=== PATIENT | male | born 1940 | race Caucasian/White ===

== ENCOUNTER 2019-02-12 13:18 | Emergency (ER) | payer OTHER | END 2019-02-12 15:08 | disposition home or self-care (01) | LOC: EDH 13:18 | DX: S61.217A Laceration without foreign body of left little finger without damage to nail, initial encounter (principal); S61.215A Laceration without foreign body of left ring finger without damage to nail, initial encounter; I10 Essential (primary) hypertension; E11.9 Type 2 diabetes mellitus without complications; I25.10 Atherosclerotic heart disease of native coronary artery without angina pectoris; Z85.05 Personal history of malignant neoplasm of liver; W26.0XXA Contact with knife, initial encounter; Y93.G3 Activity, cooking and baking; Y92.098 Other place in other non-institutional residence as the place of occurrence of the external cause; Y99.8 Other external cause status | CPT/HCPCS: 12002; 73140 ==

== ENCOUNTER 2019-08-20 14:44 | Inpatient (IN) | payer OTHER ==
[~2019-08-20] VITALS: Ht 162.6 cm; Wt 76.3 kg
[2019-08-20 15:12] LABS: BASOPHILS % (AUTO) 0.3 % (0.0-5.0); LYMPHOCYTES % (AUTO) 5.6 % (21.0-51.0); MEAN CORPUSCULAR HEMOGLOBIN 27.7 pg (27.0-33.0); MEAN CORPUSCULAR HGB CONC 26.3 g/dL (32.0-36.0); MEAN CORPUSCULAR VOLUME 105.4 fL (79-99); NEUTROPHILS % (AUTO) 84.1 % (40.0-77.0); NUCLEATED RED BLOOD CELLS 2.1 % (0.0-0.19); PLATELET COUNT (AUTO) 35 K/uL (130-400); RED BLOOD CELL COUNT(AUTO) 1.48 MIL/uL (4.50-6.20); RED CELL DISTRIBUTION WIDTH 17.9 % (11.0-15.5); WHITE BLOOD COUNT (AUTO) 12.6 K/uL (4.8-10.8)
[2019-08-20 15:32] LABS: INR 1.06 (0.85-1.15); PARTIAL THROMBOPLASTIN TIME 23.1 SEC (26.3-35.5); PROTHROMBIN TIME 11.4 SEC (9.6-11.6)
[2019-08-20 15:50] LABS: HEMATOCRIT 15.6 % (42-54)
[2019-08-20 15:51] LABS: B-TYPE NATRIURETIC PEPTIDE 374 pg/mL (0-100)
[2019-08-20] MEDS ORDERED: SODIUM CHLORIDE 0.9% 100 ML IV ONE (16:35)
[2019-08-20 16:42] LABS: HEMATOCRIT 15.8 % (42-54)
[2019-08-20 16:46] LABS: RETICULOCYTE % (AUTO) 18.77 % (0.42-2.23)
[2019-08-20 17:19] LABS: APPEARANCE,URINE Clear (CLEAR); BILIRUBIN,URINE Negative (NEGATIVE); COLOR,URINE Yellow (YELLOW); GLUCOSE, URINE (UA) Negative (NEGATIVE); KETONES,URINE Negative (NEGATIVE); LEUKOCYTE ESTERASE ,URINE Negative (NEGATIVE); NITRATE,URINE Negative (NEGATIVE); OCCULT BLOOD,URINE Negative (NEGATIVE); PROTEIN,URINE Negative (NEGATIVE); UROBILINOGEN,URINE 0.2 mg/dL (0.2-1.0)
[2019-08-20] MEDS ORDERED: MORPHINE SULFATE 2 MG/ML 1ML SYG IV PRN (18:30)
[2019-08-20] MEDS ORDERED: HYDRALAZINE HCL 20 MG/ML VIAL IV PRN (18:30)
[2019-08-20] MEDS ORDERED: ACETAMINOPHEN 325 MG TAB PO PRN ×2 (18:30)
[2019-08-20] MEDS ORDERED: DiphenhydrAMINE HCL 50 MG/ML VIAL IV PRN (18:30)
[2019-08-20 22:05] VITALS: BP 105/65
--- NOTE | 2019-08-20 22:05 | NUR ---
ADMIT PT ADMITTED TO ROOM 312 FROM ER WITH ONGOING BLOOD TRANSFUSION AND INSULIN DRIP. PT CLAIMS OF SOB WITH EXERTION. ADMISSION CARE DONE. ADMISSION DATA BASE COMPLETED. ORIENTED TO ROOM AND UNIT. IN FOR MORE CARE AND MANAGEMENT. Addendum: 08/20/19 at 2251 by HINA WARREN RN RN Amended: Links added.
[2019-08-20] MEDS ORDERED: ASCO500T10 PO (23:03)
[2019-08-20] MEDS ORDERED: CARV12.511 PO (23:03)
[2019-08-20] MEDS ORDERED: INSLAN SQ (23:03)
[2019-08-20] MEDS ORDERED: LISI1TAB28 PO (23:03)
[2019-08-20] MEDS ORDERED: FERR324T4 PO (23:03)
[2019-08-20] MEDS ORDERED: PRAV40TA3 PO (23:03)
[2019-08-20] MEDS ORDERED: HYDR-4153 PO (23:03)
[2019-08-20] MEDS ORDERED: ALLO100T PO (23:03)
[2019-08-20] MEDS ORDERED: AMLO10TA7 PO (23:03)
[2019-08-20] MEDS ORDERED: METF-444 PO (23:03)
[2019-08-20] MEDS ORDERED: APIX5TAB PO (23:03)
[2019-08-20] MEDS: PANTOPRAZOLE SODIUM 80 MG in SODIUM CHLORIDE 0.9% 100 ML IV SCH (23:51)
--- NOTE | 2019-08-20 23:55 | NUR ---
BLOOD BLOOD TRANSFUSION COMPLETED WITHOUT ANY UNTOWARD S/SX. V/S MONITORED, STABLE. KEPT RESTED. ENCOURAGED TO GO TO SLEEP. PLACED NPO FROM NOW. PT VERBALIZES UNDERSTANDING.
[2019-08-21] VITALS (19 sets, daily range): BP systolic 87–158; BP diastolic 55–88
--- NOTE | 2019-08-21 02:10 | NUR ---
HEMOGLOBIN PT'S REPEAT HEMOGLOBIN=6.9. CALLED LAB FOR PRBC. EFFICIENCY MINER BLASTING WAS INFORMED THAT ONE UNIT IS AVAILABLE BUT NEED TO BE CROSSED MATCHED. WILL BE CALLED WHEN READY.
--- NOTE | 2019-08-21 02:30 | NUR ---
BLOOD PT MADE AWARE OF NEED FOR TRANSFUSION OF 3RD UNIT OF PRBC. PT VERBALIZES UNDERSTANDING.CHECKED UNIT OF PRBC WITH ARIC WHITTINGTON. V/S MONITORED, STABLE. STARTED TRANSFUSION. WILL MONITOR CLOSELY.
--- NOTE | 2019-08-21 02:55 | NUR ---
ASSESS PT TOLERATING BLOOD TRANSFUSION WELL. NO UNTOWARD S/SX NOTED. V/S MONITORED, STABLE. WILL MONITOR CLOSELY.
[2019-08-21] MEDS ORDERED: INSU100I3 SQ ×2 (03:15)
[2019-08-21] MEDS: CEFTRIAXONE SODIUM 1 GM IV SCH ×2 (05:45→17:46)
--- NOTE | 2019-08-21 06:00 | NUR ---
COMPLETED BLOOD TRANSFUSION COMPLETED, NO UNTOWARD S/SX NOTED. V/S MONITORED, STABLE. KEPT NPO. AWAITING GI LAB FOR PROCEDURE.
--- NOTE | 2019-08-21 06:30 | NUR ---
NANETTE HAWKINS RN, IN TO TAKE PT TO PROCEDURE. CATTYMAN CIARA BLOOD FIRST BEFORE PT WAS TAKEN DOWN.
[2019-08-21] MEDS ORDERED: PROPOFOL 10 MG/ML 20ML VIAL IV ONE (06:50)
[2019-08-21] MEDS ORDERED: GLYCOPYRROLATE 1 MG/5 ML SYRINGE ONE (06:51)
[2019-08-21 06:57] LABS: BASOPHILS % (AUTO) 0.5 % (0.0-5.0); EOSINOPHILS % (AUTO) 1.5 % (0.0-8.0); HEMATOCRIT 28.7 % (42-54); MEAN CORPUSCULAR HEMOGLOBIN 27.5 pg (27.0-33.0); MEAN CORPUSCULAR HGB CONC 28.9 g/dL (32.0-36.0); MONOCYTES % (AUTO) 6.7 % (3.0-13.0); NEUTROPHILS % (AUTO) 80.5 % (40.0-77.0); NUCLEATED RED BLOOD CELLS 1.3 % (0.0-0.19); PLATELET COUNT (AUTO) 34 K/uL (130-400); RED BLOOD CELL COUNT(AUTO) 3.02 MIL/uL (4.50-6.20); RED CELL DISTRIBUTION WIDTH 18.6 % (11.0-15.5); WHITE BLOOD COUNT (AUTO) 12.1 K/uL (4.8-10.8)
[2019-08-21] MEDS ORDERED: SODIUM CHLORIDE 0.9% 1000ML 1,000 ML IV SCH (07:30)
[2019-08-21 07:59] LABS: BILIRUBIN,TOTAL 0.5 mg/dL (0.2-1.0); CREATININE 1.7 mg/dL (0.5-1.5); POTASSIUM 4.4 mmol/L (3.5-5.1); TOTAL PROTEIN, SERUM 6.4 g/dL (6.0-8.3)
--- NOTE | 2019-08-21 08:00 | NUR ---
RECEIVED TO ROOM 312 S/P EGD WITH BX. AWAKE, ALERT. CLEAR LIQ DIET ORDERED. NEW ORDERS IN. BP 120/73 RR RATE AT 20, HR 93, TEMP. 98 PROTONIX DRIP INFUSING.
[2019-08-21] MEDS: PANTOPRAZOLE SODIUM 80 MG in SODIUM CHLORIDE 0.9% 100 ML IV SCH (08:50)
--- NOTE | 2019-08-21 12:02 | NUR ---
INITIAL SW spoke with patient. He states he lives with stepdalefty, Rashard Acuña, [phone]. Another emergency contact is daughter in [place], . No home services. DME: heather. Patient states he is able to complete ADL's and drives. He recently moved to [place] and has no local PCP yet. Pharmacy is [place] pharmacy. DCP is home. Addendum: 08/21/19 at 1205 by MANJEET SIMPSON SS Amended: Links added.
[2019-08-21] MEDS ORDERED: PEG 3350/NA SULF,BICARB,CL/KCL 4000 ML SOLN PO SCH (15:00)
--- NOTE | 2019-08-21 15:00 | NUR ---
STARTED ON GOLYTELY PREP FOR COLONOSCOPY IN AM.
--- NOTE | 2019-08-21 22:21 | NUR ---
PLATELET COUNT NOTIFIED HOSPITALIST, KATERINA FIGUEROA NP REGARDING DR. HERNANDEZ'S RECOMMENDATION TO "CORRECT PLATELET COUNT TO 50". NEW ORDER RECEIVED TO TRANSFUSE ONE UNIT OF PLATELETS.
[2019-08-22] VITALS (27 sets, daily range): BP systolic 114–164; BP diastolic 60–94
--- NOTE | 2019-08-22 00:35 | NUR ---
PLATELET TRANSFUSION STARTED 34
[2019-08-22 04:22] LABS: BASOPHILS % (AUTO) 0.5 % (0.0-5.0); EOSINOPHILS % (AUTO) 1.5 % (0.0-8.0); HEMATOCRIT 30.1 % (42-54); MEAN CORPUSCULAR HEMOGLOBIN 28.1 pg (27.0-33.0); MEAN CORPUSCULAR HGB CONC 29.2 g/dL (32.0-36.0); MEAN CORPUSCULAR VOLUME 96.2 fL (79-99); MONOCYTES % (AUTO) 5.9 % (3.0-13.0); NEUTROPHILS % (AUTO) 81.9 % (40.0-77.0); NUCLEATED RED BLOOD CELLS 0.7 % (0.0-0.19); PLATELET COUNT (AUTO) 39 K/uL (130-400); RED BLOOD CELL COUNT(AUTO) 3.13 MIL/uL (4.50-6.20); RED CELL DISTRIBUTION WIDTH 18.6 % (11.0-15.5); WHITE BLOOD COUNT (AUTO) 10.5 K/uL (4.8-10.8)
[2019-08-22 04:37] LABS: ALBUMIN 3.2 g/dL (3.5-5.0); CREATININE 1.5 mg/dL (0.5-1.5); POTASSIUM 3.6 mmol/L (3.5-5.1)
[2019-08-22 04:58] LABS: BILIRUBIN,TOTAL 0.7 mg/dL (0.2-1.0)
[2019-08-22] MEDS ORDERED: PROPOFOL 10 MG/ML 20ML VIAL IV ONE (08:30)
[2019-08-22] MEDS: CEFTRIAXONE SODIUM 1 GM IV SCH (19:11)
[2019-08-22] MEDS: FERROUS SULFATE 325 MG TABLET.DR PO SCH (20:05)
[2019-08-22] MEDS: PANTOPRAZOLE SODIUM 40 MG TABLET.DR PO SCH (20:05)
--- NOTE | 2019-08-23 00:12 | NUR ---
TACHYCARDIA INFORMED PENNY FIGUEROA DISCOVERY MANAGER FOR HOSPITALIST THAT PATIENTS HEART RATE DURING MIDNIGHT VITALS 128, BP 141/78. PATIENT STATES HE FEELS FINE. INFORMED DISCOVERY MANAGER THAT PATIENT TAKES COREG AT HOME AND MED HAS NOT BEEN RESUMED. ORDERS RECEIVED TO START COREG 6.25 BID FIRST DOSE NOW. ORDERS ALSO RECEIVED FOR PRN LABETALOL IV
[2019-08-23] MEDS: CARVEDILOL 6.25 MG TABLET PO SCH ×2 (00:16→08:24)
[2019-08-23] MEDS ORDERED: CARVEDILOL 6.25 MG TABLET PO ONE (00:20)
[2019-08-23] MEDS ORDERED: LABETALOL HCL 5 MG/ML 20ML VIAL IV PRN (00:30)
[2019-08-23 04:00] VITALS: BP 145/78
[2019-08-23] MEDS: CEFTRIAXONE SODIUM 1 GM IV SCH (04:24)
[2019-08-23 04:25] LABS: BASOPHILS % (AUTO) 0.5 % (0.0-5.0); EOSINOPHILS % (AUTO) 1.9 % (0.0-8.0); LYMPHOCYTES % (AUTO) 5.6 % (21.0-51.0); MEAN CORPUSCULAR HEMOGLOBIN 27.5 pg (27.0-33.0); MEAN CORPUSCULAR VOLUME 94.8 fL (79-99); MONOCYTES % (AUTO) 8.3 % (3.0-13.0); NEUTROPHILS % (AUTO) 82.8 % (40.0-77.0); NUCLEATED RED BLOOD CELLS 0.5 % (0.0-0.19); PLATELET COUNT (AUTO) 37 K/uL (130-400); RED BLOOD CELL COUNT(AUTO) 3.27 MIL/uL (4.50-6.20); RED CELL DISTRIBUTION WIDTH 17.2 % (11.0-15.5); WHITE BLOOD COUNT (AUTO) 8.8 K/uL (4.8-10.8)
[2019-08-23 04:53] LABS: ALBUMIN 3.3 g/dL (3.5-5.0); BILIRUBIN,TOTAL 0.6 mg/dL (0.2-1.0); CREATININE 1.3 mg/dL (0.5-1.5); TOTAL PROTEIN, SERUM 6.9 g/dL (6.0-8.3)
[2019-08-23 08:15] VITALS: BP 128/81
[2019-08-23] MEDS: FERROUS SULFATE 325 MG TABLET.DR PO SCH (08:24)
[2019-08-23] MEDS: PANTOPRAZOLE SODIUM 40 MG TABLET.DR PO SCH (08:25)
--- NOTE | 2019-08-23 10:20 | NUR ---
DR. ARGUELLO AWARE OF CASE STATES WILL SEE PATIENT AT NOON.
[2019-08-23 11:35] VITALS: BP 148/88
--- NOTE | 2019-08-23 12:30 | NUR ---
DR. ARGUELLO STATES TO F/U 1 WEEK. Addendum: 08/23/19 at 1616 by ZACK GONZALEZ RN RN STATES AND RECOMMENDS PT TO STOP BLOOD THINNERS TO PREVENT GI BLEED.
[2019-08-23] MEDS ORDERED: LISINOPRIL 20 MG TABLET PO SCH (13:00)
[2019-08-23] MEDS ORDERED: HYDROCHLOROTHIAZIDE 25 MG TABLET PO SCH (13:00)
[2019-08-23] MEDS ORDERED: FERR324T4 PO (13:15)
--- NOTE | 2019-08-23 16:12 | NUR ---
PT D/C HOME USING TEACH BACK TECHNIQUE RE; FOLLOW UP WITH YOUR PRIMARY DOCTOR IN 1 WEEK. CALL TO SET UP AN APPOINTMENT. FOLLOW UP WITH DR. ENRIQUEZ/FRACISCO OR MARY; ENVIRONMENTAL DESIGNER IN 1 OR 2 WEEKS. CALL TO SET UP AN APPOINTMENT. FOLLOW UP WITH DR. ARGUELLO IN 1-2 WEEKS. CALL TO SET UP AN APPOINTMENT. IF YOU NOTICE BLOOD IN YOUR STOOLS CALL YOUR PRIMMARY DOCTOR. IF YOU FEEL SHORTNESS OF BREATH OR CHEST PAIN THAT DOES NOT RESOLVE WITH REST CALL 911. STOP BLOOD THINNER DIRECTED BY YOUR AIRFIELD DEFENCE GUARD WHO SAW YOU HERE AT [facility]. IV OUT INTACT, NO BLEEDING, AAOX3, IN NO DISTRESS, STATES DOES NOT WANT A WHEELCHAIR WENT DOWN TO ER, REFUSING TRANSFER TO EXIT. TELE REMOVED BY CHARGE NURSE INCLUDING IV CATHETERS.
--- NOTE | 2019-08-23 18:27 | NUR ---
CALLED NEXT OF KIN MRS LÓPEZ LEFT VOICEMAIL OF APPOINTMENT WITH DR. ENRIQUEZ AND DR. ARGUELLO AND PHONE NUMBERS. AND REASON FOR CONSULTS. THE NEED TO SET UP APPOINTMENTS.
[2019-08-23] MEDS ORDERED: CARVEDILOL 12.5 MG TABLET PO SCH (21:00)
== END 2019-08-23 16:00 | disposition home or self-care (01) | DRG 393 ==
LOC: EDH 14:44 → EDHIP 18:20 → 3BH 21:34
PROVIDERS: ADMIT Internal Medicine; ATTEND Internal Medicine
PROC: 30233N1 Transfusion of Nonautologous Red Blood Cells into Peripheral Vein, Percutaneous Approach (ICD-10-PCS; principal; 2019-08-20)
PROC: 0DB98ZX Excision of Duodenum, Via Natural or Artificial Opening Endoscopic, Diagnostic (ICD-10-PCS; 2019-08-21)
PROC: 0DB68ZX Excision of Stomach, Via Natural or Artificial Opening Endoscopic, Diagnostic (ICD-10-PCS; 2019-08-21)
PROC: 0DBK8ZZ Excision of Ascending Colon, Via Natural or Artificial Opening Endoscopic (ICD-10-PCS; 2019-08-22)
PROC: 0DBH8ZZ Excision of Cecum, Via Natural or Artificial Opening Endoscopic (ICD-10-PCS; 2019-08-22)
PROC: 30233R1 Transfusion of Nonautologous Platelets into Peripheral Vein, Percutaneous Approach (ICD-10-PCS; 2019-08-22)
DX: K63.5 Polyp of colon (principal); K29.71 Gastritis, unspecified, with bleeding; I48.20 Chronic atrial fibrillation, unspecified; D62 Acute posthemorrhagic anemia; I25.10 Atherosclerotic heart disease of native coronary artery without angina pectoris; E11.9 Type 2 diabetes mellitus without complications; I10 Essential (primary) hypertension; Z85.05 Personal history of malignant neoplasm of liver; R09.02 Hypoxemia; D69.6 Thrombocytopenia, unspecified; E78.5 Hyperlipidemia, unspecified; M10.9 Gout, unspecified; Z79.01 Long term (current) use of anticoagulants; Z87.19 Personal history of other diseases of the digestive system; Z87.891 Personal history of nicotine dependence; K44.9 Diaphragmatic hernia without obstruction or gangrene
CPT/HCPCS: 36415; 36430; 43239; 45378; 71045; 80053; 81003; 82270; 82550; 82607; 82728; 82746; 82948; 83540; 83550; 83880; 84145; 84484; 85014; 85018; 85025; 85045; 85610; 85730; 86850; 86900; 86901; 86922; 93005; 99291; A4606; C9113; G0378; J0696; J2704; J3490; J7030; P9016; P9034

== ENCOUNTER 2019-09-04 14:06 | Inpatient (IN) | payer OTHER ==
[~2019-09-04] VITALS: Ht 157.5 cm; Wt 74.8 kg
[~2019-09-04 14:06] MED LIST: ALLO100T PO; AMLO-258 PO; APIX5TAB PO; ASCO500T10 PO; CARV12.511 PO; FERR324T4 PO; HYDR-4153 PO; INSLAN SQ; INSU100I3 SQ; LISI1TAB51 PO; METF-444 PO; PRAV40TA3 PO
[2019-09-04 15:06] LABS: EOSINOPHILS % (AUTO) 3.1 % (0.0-8.0); HEMATOCRIT 21.4 % (42-54); MEAN CORPUSCULAR HEMOGLOBIN 27.2 pg (27.0-33.0); MEAN CORPUSCULAR HGB CONC 28.5 g/dL (32.0-36.0); MEAN CORPUSCULAR VOLUME 95.5 fL (79-99); MONOCYTES % (AUTO) 8.4 % (3.0-13.0); NEUTROPHILS % (AUTO) 75.7 % (40.0-77.0); NUCLEATED RED BLOOD CELLS 0.3 % (0.0-0.19); PLATELET COUNT (AUTO) 40 K/uL (130-400); RED BLOOD CELL COUNT(AUTO) 2.24 MIL/uL (4.50-6.20); RED CELL DISTRIBUTION WIDTH 17.1 % (11.0-15.5); WHITE BLOOD COUNT (AUTO) 7.7 K/uL (4.8-10.8)
[2019-09-04 15:24] LABS: CREATININE 1.5 mg/dL (0.5-1.5); POTASSIUM 4.1 mmol/L (3.5-5.1)
[2019-09-04 15:26] LABS: INR 0.94 (0.85-1.15); PARTIAL THROMBOPLASTIN TIME 23.6 SEC (26.3-35.5); PROTHROMBIN TIME 10.2 SEC (9.6-11.6)
[2019-09-04 15:28] LABS: ALBUMIN 3.2 g/dL (3.5-5.0); BILIRUBIN,TOTAL 0.3 mg/dL (0.2-1.0); TOTAL PROTEIN, SERUM 6.5 g/dL (6.0-8.3)
[2019-09-04] MEDS ORDERED: ONDANSETRON HCL 4 MG/2 ML VIAL IV PRN (20:30)
[2019-09-04] MEDS ORDERED: DIPHENHYDRAMINE HCL 25 MG CAPSULE PO PRN (20:30)
[2019-09-04] MEDS ORDERED: ACETAMINOPHEN 325 MG TAB PO PRN ×2 (20:30)
[2019-09-04] MEDS ORDERED: MORPHINE SULFATE 2 MG/ML 1ML SYG IV PRN (20:30)
[2019-09-04] MEDS: ASCORBIC ACID 500 MG TAB PO SCH (21:00)
[2019-09-04] MEDS ORDERED: FAMOTIDINE/PF 20 MG/2 ML VIAL IV SCH (21:00)
[2019-09-04] MEDS: INSULIN GLARGINE 100 UNITS/ML 10 ML VIAL SQ SCH (21:00)
[2019-09-04 22:01] LABS: HEMATOCRIT 23.6 % (42-54)
[2019-09-04 23:30] VITALS: BP 113/67
--- NOTE | 2019-09-04 23:30 | NUR ---
PT ARRIVED ON FLOOR RECEIVED PT FROM ARIC GODOY. PATIENT AWAKE AND ALERT X3. PT LAYING IN BED, BLOOD TRANSFUSING VIA PUMP SET AT 175ML/HR STARTED IN ED. PROTONIX SET TO 10ML/HR INFUSING VIA PUMP. PT TRANG WELL, NO ADVERSE REACTIONS NOTED. ORIENTED TO CALL LIGHT. BED LOCKED IN LOWEST POSITION, DOOR LEFT OPEN FOR CONTINUOS MONITORING.
[2019-09-05] MEDS: FERROUS SULFATE 325 MG TABLET.DR PO SCH ×3 (00:34→20:16)
[2019-09-05] MEDS: CARVEDILOL 12.5 MG TABLET PO SCH ×3 (00:34→20:16)
--- NOTE | 2019-09-05 01:04 | NUR ---
BLOOD COMPLETED AT THIS TIME. VS STABLE. NO ADVERSE REACTIONS.
--- NOTE | 2019-09-05 01:15 | NUR ---
CONSENT FOR BLOOD AND BLOOD PRODUCTS SIGNED AND IN THE PT'S CHART.
[2019-09-05 02:33] LABS: BASOPHILS % (AUTO) 0.7 % (0.0-5.0); EOSINOPHILS % (AUTO) 3.1 % (0.0-8.0); HEMATOCRIT 25.5 % (42-54); LYMPHOCYTES % (AUTO) 9.9 % (21.0-51.0); MEAN CORPUSCULAR HEMOGLOBIN 28.4 pg (27.0-33.0); MEAN CORPUSCULAR HGB CONC 29.4 g/dL (32.0-36.0); MEAN CORPUSCULAR VOLUME 96.6 fL (79-99); MONOCYTES % (AUTO) 7.3 % (3.0-13.0); NEUTROPHILS % (AUTO) 77.2 % (40.0-77.0); NUCLEATED RED BLOOD CELLS 0.2 % (0.0-0.19); PLATELET COUNT (AUTO) 39 K/uL (130-400); RED BLOOD CELL COUNT(AUTO) 2.64 MIL/uL (4.50-6.20); RED CELL DISTRIBUTION WIDTH 16.3 % (11.0-15.5); WHITE BLOOD COUNT (AUTO) 8.4 K/uL (4.8-10.8)
[2019-09-05 02:45] LABS: ALBUMIN 3.1 g/dL (3.5-5.0); BILIRUBIN,TOTAL 0.4 mg/dL (0.2-1.0); CREATININE 1.6 mg/dL (0.5-1.5); POTASSIUM 3.9 mmol/L (3.5-5.1); TOTAL PROTEIN, SERUM 6.3 g/dL (6.0-8.3)
[2019-09-05] MEDS ORDERED: SODIUM CHLORIDE 0.9% 250 ML IV ONE (03:21)
--- NOTE | 2019-09-05 03:40 | NUR ---
PLATELETS VERIFICATION WITH SECOND RN ARIC COLLINS MADE AT BEDSIDE. PRE-INFUSION VITALS ASSESSED, WPL PLATELETS HUNG, INFUSION SET TO 60ML/HR AT START. REMAIN AT PTS BEDSIDE DURING THIS TIME. NO INITIAL ADVERSE REACTION OBSERVED. PT INFORMED OF REACTION S/S TO MONITOR FOR. CALL LIGHT WITHIN REACH
[2019-09-05 04:00] VITALS: BP 121/78
[2019-09-05] MEDS ORDERED: METOPROLOL TARTRATE 1 MG/ML 5ML VIAL IV SCH (05:45)
[2019-09-05] MEDS ORDERED: METOPROLOL TARTRATE 1 MG/ML 5ML VIAL IV ONE (05:52)
[2019-09-05] MEDS: INSULIN LISPRO 100 UNIT/ML 3ML SQ SCH (07:42)
[2019-09-05 08:00] VITALS: BP 126/69
[2019-09-05 08:42] LABS: HEMATOCRIT 25.9 % (42-54)
[2019-09-05] MEDS ORDERED: PANTOPRAZOLE SODIUM 40 MG TABLET.DR PO SCH (09:00)
[2019-09-05] MEDS: ASCORBIC ACID 500 MG TAB PO SCH ×3 (11:27→20:16)
[2019-09-05] MEDS: ALLOPURINOL 100 MG TABLET PO SCH (11:28)
[2019-09-05] MEDS: AMLODIPINE BESYLATE 5 MG TAB PO SCH (11:28)
--- NOTE | 2019-09-05 11:59 | NUR ---
INITIAL SW spoke with patient's daughter, Cherry Moulton in [place], . Daughter states he lives with stepdaughter, Rashard Acuña, . No home services. DME: cane. As per daughter patient is able to complete ADL's but is not sure if he is still driving. Patient recently moved to [place]. PCP is Dr. Quinn Miramontes at [place]. Pharmacy is [place] pharmacy. DCP is home. FORD contacted Ki Young, Inpatient Contract Bias Binding Cutter at [place]. Charlette informed FORD that patient was Not Service Connected. CM made aware. Addendum: 09/05/19 at 1202 by MANJEET SIMPSON Amended: Links added.
[2019-09-05 12:00] VITALS: BP 136/76
[2019-09-05] MEDS ORDERED: CARVEDILOL 12.5 MG TABLET PO SCH (12:15)
[2019-09-05] MEDS: LISINOPRIL 20 MG TABLET PO SCH (12:20)
[2019-09-05] MEDS: PANTOPRAZOLE SODIUM 80 MG in SODIUM CHLORIDE 0.9% 100 ML IV SCH ×2 (12:27→15:06)
[2019-09-05 14:42] LABS: HEMATOCRIT 25.5 % (42-54)
[2019-09-05 16:00] VITALS: BP 99/56
[2019-09-05] MEDS ORDERED: INSULIN LISPRO 100 UNIT/ML 3ML SQ SCH (17:00)
[2019-09-05 19:10] VITALS: BP 116/91
[2019-09-05 20:32] LABS: HEMATOCRIT 27.1 % (42-54)
[2019-09-05] MEDS: INSULIN GLARGINE 100 UNITS/ML 10 ML VIAL SQ SCH (21:00)
[2019-09-05] MEDS ORDERED: ATORVASTATIN CALCIUM 10 MG TABLET PO SCH (21:00)
[2019-09-05 23:55] VITALS: BP 98/52
[2019-09-06] VITALS (10 sets, daily range): BP systolic 92–135; BP diastolic 52–82
[2019-09-06 02:47] LABS: BASOPHILS % (AUTO) 0.5 % (0.0-5.0); EOSINOPHILS % (AUTO) 2.6 % (0.0-8.0); HEMATOCRIT 25.5 % (42-54); LYMPHOCYTES % (AUTO) 9.4 % (21.0-51.0); MEAN CORPUSCULAR HEMOGLOBIN 28.6 pg (27.0-33.0); MEAN CORPUSCULAR HGB CONC 29.8 g/dL (32.0-36.0); MEAN CORPUSCULAR VOLUME 95.9 fL (79-99); MONOCYTES % (AUTO) 7.5 % (3.0-13.0); NUCLEATED RED BLOOD CELLS 0.2 % (0.0-0.19); PLATELET COUNT (AUTO) 43 K/uL (130-400); RED BLOOD CELL COUNT(AUTO) 2.66 MIL/uL (4.50-6.20); RED CELL DISTRIBUTION WIDTH 16.2 % (11.0-15.5); WHITE BLOOD COUNT (AUTO) 9.6 K/uL (4.8-10.8)
[2019-09-06 02:59] LABS: ALBUMIN 3.1 g/dL (3.5-5.0); BILIRUBIN,TOTAL 0.6 mg/dL (0.2-1.0); CREATININE 1.7 mg/dL (0.5-1.5); POTASSIUM 4.3 mmol/L (3.5-5.1); TOTAL PROTEIN, SERUM 6.5 g/dL (6.0-8.3)
[2019-09-06] MEDS: PANTOPRAZOLE SODIUM 80 MG in SODIUM CHLORIDE 0.9% 100 ML IV SCH (06:42)
[2019-09-06] MEDS ORDERED: GLYCOPYRROLATE 0.2 MG/ML 5 ML VIAL ONE (08:31)
[2019-09-06] MEDS ORDERED: LIDOCAINE HCL 1% 20 ML VIAL ONE (08:31)
[2019-09-06] MEDS ORDERED: PROPOFOL 10 MG/ML 20ML VIAL IV ONE (08:31)
[2019-09-06] MEDS: INSULIN LISPRO 100 UNIT/ML 3ML SQ SCH (09:30)
[2019-09-06 10:05] LABS: HEMATOCRIT 25.7 % (42-54)
[2019-09-06] MEDS: AMLODIPINE BESYLATE 5 MG TAB PO SCH (10:33)
[2019-09-06] MEDS: ALLOPURINOL 100 MG TABLET PO SCH (10:34)
[2019-09-06] MEDS: LISINOPRIL 20 MG TABLET PO SCH (10:34)
[2019-09-06] MEDS: ASCORBIC ACID 500 MG TAB PO SCH ×2 (10:35→14:00)
[2019-09-06] MEDS: CARVEDILOL 12.5 MG TABLET PO SCH (10:37)
[2019-09-06] MEDS: FERROUS SULFATE 325 MG TABLET.DR PO SCH (10:37)
[2019-09-06 15:08] LABS: HEMATOCRIT 26.9 % (42-54)
== END 2019-09-06 17:15 | disposition home or self-care (01) | DRG 378 ==
LOC: EDH 14:06 → EDHIP 14:07 → 3AH 23:30
PROVIDERS: ADMIT Internal Medicine; ATTEND Internal Medicine
PROC: 30233N1 Transfusion of Nonautologous Red Blood Cells into Peripheral Vein, Percutaneous Approach (ICD-10-PCS; 2019-09-04)
PROC: 30233R1 Transfusion of Nonautologous Platelets into Peripheral Vein, Percutaneous Approach (ICD-10-PCS; principal; 2019-09-05)
PROC: 0DJ08ZZ Inspection of Upper Intestinal Tract, Via Natural or Artificial Opening Endoscopic (ICD-10-PCS; 2019-09-06)
PROC: 0DJD8ZZ Inspection of Lower Intestinal Tract, Via Natural or Artificial Opening Endoscopic (ICD-10-PCS; 2019-09-06)
DX: K29.51 Unspecified chronic gastritis with bleeding (principal); I48.19 Other persistent atrial fibrillation; K76.6 Portal hypertension; D64.9 Anemia, unspecified; N18.3 Chronic kidney disease, stage 3 (moderate); E11.22 Type 2 diabetes mellitus with diabetic chronic kidney disease; D69.59 Other secondary thrombocytopenia; E78.5 Hyperlipidemia, unspecified; I08.1 Rheumatic disorders of both mitral and tricuspid valves; I12.9 Hypertensive chronic kidney disease with stage 1 through stage 4 chronic kidney disease, or unspecified chronic kidney disease; K31.89 Other diseases of stomach and duodenum; I25.10 Atherosclerotic heart disease of native coronary artery without angina pectoris; I27.20 Pulmonary hypertension, unspecified; Z79.01 Long term (current) use of anticoagulants; K44.9 Diaphragmatic hernia without obstruction or gangrene; Z80.9 Family history of malignant neoplasm, unspecified; Z82.49 Family history of ischemic heart disease and other diseases of the circulatory system; Z87.891 Personal history of nicotine dependence; Z85.05 Personal history of malignant neoplasm of liver
CPT/HCPCS: 36415; 36430; 44360; 71045; 80053; 82270; 82550; 82948; 84484; 85014; 85018; 85025; 85610; 85730; 86850; 86900; 86901; 86922; 93005; 93306; 93356; A4606; C9113; G0378; J2704; J3490; J7030; J7050; P9016; P9034

== ENCOUNTER 2019-09-23 16:47 | Inpatient (IN) | payer OTHER ==
[~2019-09-23] VITALS: Ht 160 cm; Wt 69.9 kg
[~2019-09-23 16:47] MED LIST changes: -APIX5TAB PO
[2019-09-23 17:41] LABS: BASOPHILS % (AUTO) 0.5 % (0.0-5.0); EOSINOPHILS % (AUTO) 2.6 % (0.0-8.0); LYMPHOCYTES % (AUTO) 8.1 % (21.0-51.0); MEAN CORPUSCULAR HEMOGLOBIN 29.3 pg (27.0-33.0); MEAN CORPUSCULAR HGB CONC 27.4 g/dL (32.0-36.0); MEAN CORPUSCULAR VOLUME 106.7 fL (79-99); NEUTROPHILS % (AUTO) 79.6 % (40.0-77.0); NUCLEATED RED BLOOD CELLS 2.3 % (0.0-0.19); PLATELET COUNT (AUTO) 81 K/uL (130-400); RED BLOOD CELL COUNT(AUTO) 1.64 MIL/uL (4.50-6.20); RED CELL DISTRIBUTION WIDTH 22.6 % (11.0-15.5); WHITE BLOOD COUNT (AUTO) 11.8 K/uL (4.8-10.8)
[2019-09-23 17:58] LABS: HEMATOCRIT 17.5 % (42-54)
[2019-09-23 17:59] LABS: INR 0.98 (0.85-1.15); PROTHROMBIN TIME 10.6 SEC (9.6-11.6)
[2019-09-23 18:00] LABS: CREATININE 1.9 mg/dL (0.5-1.5)
[2019-09-23 18:04] LABS: RETICULOCYTE % (AUTO) 13.42 % (0.42-2.23)
[2019-09-23 18:05] LABS: ALBUMIN 2.8 g/dL (3.5-5.0); BILIRUBIN,TOTAL 0.2 mg/dL (0.2-1.0); TOTAL PROTEIN, SERUM 6.3 g/dL (6.0-8.3)
[2019-09-23 21:00] VITALS: BP 137/65
--- NOTE | 2019-09-23 21:00 | NUR ---
PATIENT ARRIVED. A/OX3, SOB WITH EXERTION AND AT REST. ON 2L, NC. 97% 02 SATS. AUDIBLE WHEEZES WITH CRACKLES TO POSTERIOR 2+ LUNGS. 2+ PITTING EDEMA TO BLE. HR A-FIB 120-130S. SKIP HOIST OPERATOR PENNY FIGUEROA NOTIFIED. FIRST UNIT OF BLOOD CURRENTLY TRANSFUSING. TRANSFUSION STARTED IN ED. URINE COLLECTED AND SENT TO LAB. HOME MEDS WILL BE BROUGHT IN TOMORROW BY AMALIA AMARO.
[2019-09-23 21:05] LABS: APPEARANCE,URINE Clear (CLEAR); BILIRUBIN,URINE Negative (NEGATIVE); COLOR,URINE Yellow (YELLOW); GLUCOSE, URINE (UA) Negative (NEGATIVE); KETONES,URINE Negative (NEGATIVE); LEUKOCYTE ESTERASE ,URINE Negative (NEGATIVE); NITRATE,URINE Negative (NEGATIVE); OCCULT BLOOD,URINE Negative (NEGATIVE); PROTEIN,URINE Negative (NEGATIVE); UROBILINOGEN,URINE 0.2 mg/dL (0.2-1.0)
[2019-09-23] MEDS: CEFTRIAXONE SODIUM 1 GM IVP SCH (22:48)
[2019-09-23] MEDS: LACTATED RINGERS 1000ML 1,000 ML IV SCH (22:48)
[2019-09-23] MEDS: PANTOPRAZOLE SODIUM 40 MG TABLET.DR PO SCH (22:49)
--- NOTE | 2019-09-23 23:00 | NUR ---
PENNY FIGUEROA NP PAGED FOR DYSRHYTHMIA EPISODE. AWAITING CALL BACK.
[2019-09-24] VITALS: BP 133/72
[2019-09-24] MEDS ORDERED: CARVEDILOL 12.5 MG TABLET PO ONE ×2 (00:15→00:47)
[2019-09-24 00:44] LABS: HEMATOCRIT 22.3 % (42-54)
[2019-09-24 01:14] LABS: CREATININE 1.6 mg/dL (0.5-1.5); MAGNESIUM 2.7 mg/dL (1.80-2.40); POTASSIUM 4.6 mmol/L (3.5-5.1)
--- NOTE | 2019-09-24 01:33 | NUR ---
Post Transfusion HG 6.4. Will notify FURNITURE FINISHER
[2019-09-24] MEDS ORDERED: FUROSEMIDE 10 MG/ML 2ML VIAL IV STA (02:20)
[2019-09-24] MEDS ORDERED: FUROSEMIDE 10 MG/ML 2ML VIAL ONE (03:33)
[2019-09-24 04:00] VITALS: BP 129/64
[2019-09-24] MEDS: INSULIN LISPRO 100 UNIT/ML 3ML SQ SCH ×4 (06:47→21:00)
[2019-09-24 07:57] VITALS: BP 136/73
[2019-09-24] MEDS: LACTATED RINGERS 1000ML 1,000 ML IV SCH (08:20)
[2019-09-24] MEDS ORDERED: CARVEDILOL 12.5 MG TABLET PO SCH ×3 (09:00→14:45)
[2019-09-24] MEDS: CEFTRIAXONE SODIUM 1 GM IVP SCH ×2 (10:12→21:54)
[2019-09-24] MEDS: PANTOPRAZOLE SODIUM 40 MG TABLET.DR PO SCH ×2 (10:12→21:54)
[2019-09-24 10:59] VITALS: BP 121/63
[2019-09-24 12:02] LABS: BASOPHILS % (AUTO) 0.8 % (0.0-5.0); EOSINOPHILS % (AUTO) 2.3 % (0.0-8.0); HEMATOCRIT 25.7 % (42-54); LYMPHOCYTES % (AUTO) 6.7 % (21.0-51.0); MEAN CORPUSCULAR HEMOGLOBIN 29.1 pg (27.0-33.0); MEAN CORPUSCULAR HGB CONC 29.6 g/dL (32.0-36.0); MEAN CORPUSCULAR VOLUME 98.5 fL (79-99); MONOCYTES % (AUTO) 6.1 % (3.0-13.0); NEUTROPHILS % (AUTO) 81.6 % (40.0-77.0); NUCLEATED RED BLOOD CELLS 0.6 % (0.0-0.19); PLATELET COUNT (AUTO) 88 K/uL (130-400); RED BLOOD CELL COUNT(AUTO) 2.61 MIL/uL (4.50-6.20); RED CELL DISTRIBUTION WIDTH 21.9 % (11.0-15.5); WHITE BLOOD COUNT (AUTO) 11.9 K/uL (4.8-10.8)
[2019-09-24 12:16] LABS: CREATININE 1.6 mg/dL (0.5-1.5); POTASSIUM 4.2 mmol/L (3.5-5.1)
[2019-09-24 12:24] LABS: ALBUMIN 2.9 g/dL (3.5-5.0); BILIRUBIN,TOTAL 0.7 mg/dL (0.2-1.0); TOTAL PROTEIN, SERUM 6.5 g/dL (6.0-8.3)
[2019-09-24] MEDS ORDERED: EPOETIN ALFA 10,000 UNIT/ML VIAL SQ SCH (14:30)
[2019-09-24] MEDS ORDERED: COMPOUND IV MISC 1 EACH IVSOLN MISC PRN (14:45)
[2019-09-24] MEDS: IRON SUCROSE COMPLEX 300 MG in SODIUM CHLORIDE 0.9% 50 ML IV SCH (15:41)
[2019-09-24 16:35] VITALS: BP 131/101
--- NOTE | 2019-09-24 16:59 | NUR ---
CM NOTE/IA MEET WITH PATIENT IN ROOM. PER PATIENT, LIVES WITH STEPDAUGHTER AND SON IN [place], IS INDEPENDENT WITH ADLS, HAS USE OF CANE, NO COMMUNITY RESOURCES IN USE, AND FEELS SAFE TO RETURN HOME ONCE DISCHARGE. Addendum: 09/24/19 at 1659 by CORI YAP RN CM Amended: Links added.
[2019-09-24 18:36] LABS: HEMATOCRIT 28.3 % (42-54)
[2019-09-24 19:00] VITALS: BP 134/78
[2019-09-24] MEDS: FERROUS SULFATE 325 MG TABLET.DR PO SCH (21:54)
[2019-09-24] MEDS: CARVEDILOL 25 MG TABLET PO SCH (21:55)
[2019-09-25] VITALS (23 sets, daily range): BP systolic 86–144; BP diastolic 44–86
[2019-09-25 03:51] LABS: MEAN CORPUSCULAR HGB CONC 29.6 g/dL (32.0-36.0); NUCLEATED RED BLOOD CELLS 0.9 % (0.0-0.19); PLATELET COUNT (AUTO) 81 K/uL (130-400); RED BLOOD CELL COUNT(AUTO) 2.55 MIL/uL (4.50-6.20); RED CELL DISTRIBUTION WIDTH 21.4 % (11.0-15.5); WHITE BLOOD COUNT (AUTO) 10.3 K/uL (4.8-10.8)
[2019-09-25 04:01] LABS: EOSINOPHILS % (MANUAL) 6 % (1-6); LYMPHOCYTES % (MANUAL) 14 % (22-44); MAN.DIFF COMMENT-IMPRESSION MANUAL DIFFERENTIAL; MONOCYTES % (MANUAL) 6 % (2-9); PLATELET MORPHOLOGY COMMENT DECREASED; SEGMENTED NEUTROPHILS % 74 % (40-70)
[2019-09-25 04:04] LABS: CREATININE 1.6 mg/dL (0.5-1.5); MAGNESIUM 2.6 mg/dL (1.80-2.40); PHOSPHORUS 3.9 mg/dL (2.5-4.9); POTASSIUM 4.4 mmol/L (3.5-5.1)
[2019-09-25] MEDS: INSULIN LISPRO 100 UNIT/ML 3ML SQ SCH ×4 (06:30→20:12)
[2019-09-25] MEDS ORDERED: PROPOFOL 10 MG/ML 20ML VIAL IV ONE (07:25)
[2019-09-25] MEDS ORDERED: LIDOCAINE HCL-MPF 2% 5ML VIAL ONE (07:25)
[2019-09-25] MEDS ORDERED: SODIUM CHLORIDE 0.9% 10 ML VIAL ONE (07:56)
[2019-09-25] MEDS ORDERED: PHENYLEPHRINE HCL 10 MG/ML 1ML VIAL IV ONE (07:57)
[2019-09-25] MEDS ORDERED: EPINEPHRINE 1 MG/ML AMPULE ONE (08:03)
[2019-09-25] MEDS: FERROUS SULFATE 325 MG TABLET.DR PO SCH ×2 (09:29→20:08)
[2019-09-25] MEDS: PANTOPRAZOLE SODIUM 40 MG TABLET.DR PO SCH ×2 (09:29→20:07)
[2019-09-25] MEDS: CARVEDILOL 25 MG TABLET PO SCH (09:30)
[2019-09-25] MEDS: IRON SUCROSE COMPLEX 300 MG in SODIUM CHLORIDE 0.9% 50 ML IV SCH (09:31)
[2019-09-25] MEDS: CEFTRIAXONE SODIUM 1 GM IVP SCH ×2 (09:45→20:07)
[2019-09-25] MEDS: ASCORBIC ACID 500 MG TAB PO SCH (09:46)
[2019-09-25] MEDS: METOPROLOL TARTRATE 50 MG TAB PO SCH (20:08)
[2019-09-26 04:00] VITALS: BP 122/68
[2019-09-26] MEDS: SUCRALFATE 1 GM TABLET PO SCH ×4 (05:12→17:03)
[2019-09-26] MEDS: INSULIN LISPRO 100 UNIT/ML 3ML SQ SCH ×3 (06:10→15:54)
[2019-09-26 07:46] VITALS: BP 123/76
[2019-09-26] MEDS: CEFTRIAXONE SODIUM 1 GM IVP SCH (08:46)
[2019-09-26] MEDS: FERROUS SULFATE 325 MG TABLET.DR PO SCH (08:47)
[2019-09-26] MEDS: ASCORBIC ACID 500 MG TAB PO SCH (08:47)
[2019-09-26] MEDS: METOPROLOL TARTRATE 50 MG TAB PO SCH (08:47)
[2019-09-26] MEDS: PANTOPRAZOLE SODIUM 40 MG TABLET.DR PO SCH (08:47)
[2019-09-26] MEDS: IRON SUCROSE COMPLEX 300 MG in SODIUM CHLORIDE 0.9% 50 ML IV SCH (08:51)
[2019-09-26] MEDS ORDERED: IRON SUCROSE COMPLEX 300 MG in SODIUM CHLORIDE 0.9% 250 ML IV SCH (09:16)
[2019-09-26 11:45] VITALS: BP 117/58
[2019-09-26] MEDS ORDERED: PANT40TA PO (12:11)
[2019-09-26] MEDS ORDERED: METO50 PO (12:11)
[2019-09-26] MEDS ORDERED: SUCR1TAB PO (12:11)
[2019-09-26 12:25] LABS: BASOPHILS % (AUTO) 0.5 % (0.0-5.0); EOSINOPHILS % (AUTO) 2.5 % (0.0-8.0); HEMATOCRIT 27.9 % (42-54); LYMPHOCYTES % (AUTO) 5.5 % (21.0-51.0); MEAN CORPUSCULAR HEMOGLOBIN 29.2 pg (27.0-33.0); MEAN CORPUSCULAR HGB CONC 28.3 g/dL (32.0-36.0); MONOCYTES % (AUTO) 7.8 % (3.0-13.0); NEUTROPHILS % (AUTO) 82.4 % (40.0-77.0); NUCLEATED RED BLOOD CELLS 0.5 % (0.0-0.19); PLATELET COUNT (AUTO) 75 K/uL (130-400); RED BLOOD CELL COUNT(AUTO) 2.71 MIL/uL (4.50-6.20); RED CELL DISTRIBUTION WIDTH 21.2 % (11.0-15.5)
[2019-09-26 12:33] LABS: CREATININE 1.6 mg/dL (0.5-1.5); POTASSIUM 4.5 mmol/L (3.5-5.1)
[2019-09-26] MEDS ORDERED: EPOETIN ALFA 10,000 UNIT/ML VIAL SQ SCH (15:00)
[2019-09-26 15:52] VITALS: BP 109/57
--- NOTE | 2019-09-26 17:20 | NUR ---
PATIENT BEING DISCHARGED HOME AT THIS TIME; PIV X2 AND TELEPACK REMOVED; NEW PRESCRIPTIONS SENT TO PATIENT PHARMACY; ALL DC INSTRUCTIONS GIVEN; PATIENT STATES HE FULLY UNDERSTANDS AND HAS NO FURTHER QUESTIONS AT THIS TIME. DC INSTRUCTIONS ALSO GIVEN TO DAUGHTERPREM VIA TELEPHONE.
== END 2019-09-26 17:32 | disposition home or self-care (01) | DRG 378 ==
LOC: EDH 16:47 → EDHIP 17:36 → 4BH 20:59
PROVIDERS: ADMIT Internal Medicine; ATTEND Internal Medicine
PROC: 30233N1 Transfusion of Nonautologous Red Blood Cells into Peripheral Vein, Percutaneous Approach (ICD-10-PCS; principal; 2019-09-23)
PROC: 3E0G8GC Introduction of Other Therapeutic Substance into Upper GI, Via Natural or Artificial Opening Endoscopic (ICD-10-PCS; 2019-09-25)
DX: K31.811 Angiodysplasia of stomach and duodenum with bleeding (principal); I48.20 Chronic atrial fibrillation, unspecified; D62 Acute posthemorrhagic anemia; C22.0 Liver cell carcinoma; I48.91 Unspecified atrial fibrillation; I27.20 Pulmonary hypertension, unspecified; N18.9 Chronic kidney disease, unspecified; E11.22 Type 2 diabetes mellitus with diabetic chronic kidney disease; E78.5 Hyperlipidemia, unspecified; I07.1 Rheumatic tricuspid insufficiency; I25.10 Atherosclerotic heart disease of native coronary artery without angina pectoris; Z85.05 Personal history of malignant neoplasm of liver; Z87.891 Personal history of nicotine dependence; I12.9 Hypertensive chronic kidney disease with stage 1 through stage 4 chronic kidney disease, or unspecified chronic kidney disease; K44.9 Diaphragmatic hernia without obstruction or gangrene
CPT/HCPCS: 36415; 36430; 43236; 43255; 45388; 71045; 80048; 80053; 81003; 82270; 82550; 82948; 83010; 83615; 83735; 83880; 84100; 84484; 85014; 85018; 85025; 85045; 85610; 85730; 86850; 86900; 86901; 86922; 93005; 99291; G0378; J0171; J0696; J0885; J1756; J1940; J2370; J2704; J3490; J7030; J7050; J7120; P9016

== ENCOUNTER 2019-10-08 12:43 | Inpatient (IN) | payer OTHER ==
[~2019-10-08] VITALS: Ht 160 cm; Wt 67.5 kg
[~2019-10-08 12:43] MED LIST changes: -CARV12.511 PO; +METO50 PO; +PANT40TA PO; +SUCR1TAB PO
[2019-10-08 13:20] LABS: BASOPHILS % (AUTO) 0.3 % (0.0-5.0); EOSINOPHILS % (AUTO) 2.1 % (0.0-8.0); HEMATOCRIT 32.5 % (42-54); LYMPHOCYTES % (AUTO) 5.2 % (21.0-51.0); MEAN CORPUSCULAR HEMOGLOBIN 28.2 pg (27.0-33.0); MEAN CORPUSCULAR HGB CONC 28.3 g/dL (32.0-36.0); MEAN CORPUSCULAR VOLUME 99.7 fL (79-99); MONOCYTES % (AUTO) 4.9 % (3.0-13.0); PLATELET COUNT (AUTO) 78 K/uL (130-400); RED BLOOD CELL COUNT(AUTO) 3.26 MIL/uL (4.50-6.20); RED CELL DISTRIBUTION WIDTH 16.8 % (11.0-15.5); WHITE BLOOD COUNT (AUTO) 6.6 K/uL (4.8-10.8)
[2019-10-08 13:34] LABS: CREATININE 2.1 mg/dL (0.5-1.5); POTASSIUM 5.1 mmol/L (3.5-5.1)
[2019-10-08 13:38] LABS: ALBUMIN 3.1 g/dL (3.5-5.0); BILIRUBIN,TOTAL 0.3 mg/dL (0.2-1.0); TOTAL PROTEIN, SERUM 6.8 g/dL (6.0-8.3)
[2019-10-08 13:41] LABS: INR 1.06 (0.85-1.15); PROTHROMBIN TIME 11.4 SEC (9.6-11.6)
[2019-10-08 13:54] LABS: B-TYPE NATRIURETIC PEPTIDE 1200 pg/mL (0-100)
[2019-10-08] MEDS ORDERED: BUMETANIDE 0.25 MG/ML 4 ML VIAL ONE (14:15)
[2019-10-08] MEDS ORDERED: ACETAMINOPHEN 325 MG TAB PO PRN ×2 (15:45)
[2019-10-08] MEDS ORDERED: LACTULOSE 20 GM/30 ML UDCUP PO PRN (15:45)
[2019-10-08] MEDS ORDERED: HYDRALAZINE HCL 20 MG/ML VIAL IV PRN (15:45)
[2019-10-08] MEDS ORDERED: BUMETANIDE 0.25 MG/ML 10 ML VIAL IV SCH (15:45)
[2019-10-08] MEDS ORDERED: ONDANSETRON HCL 4 MG/2 ML VIAL IV PRN (15:45)
[2019-10-08] MEDS ORDERED: BUMETANIDE 0.25 MG/ML IV SCH (16:30)
[2019-10-08 17:57] LABS: HEMOGLOBIN A1C 4.6 % (4.0-6.0)
[2019-10-08 18:11] LABS: MAGNESIUM 2.5 mg/dL (1.80-2.40); PHOSPHORUS 4.9 mg/dL (2.5-4.9); THYROID STIMULATING HORMONE 1.25 uIU/mL (0.36-3.74)
[2019-10-08] MEDS: METOPROLOL TARTRATE 25 MG TAB PO SCH (21:00)
[2019-10-08] MEDS ORDERED: FAMOTIDINE 20MG TAB 20 MG TAB ONE (22:27)
[2019-10-08] MEDS ORDERED: METOPROLOL TARTRATE 25 MG TAB ONE (22:27)
--- NOTE | 2019-10-09 08:49 | NUR ---
DCP: HOME SW met with pt who states he lives with step daughter Rashard Acuña [phone]. Pt reports he is very hard or hearing, independent of all ADLS, uses a cane every now and then, has no in home care services. Seen at [place] [facility] and [facility]. Plan is home with family at [place]. Addendum: 10/09/19 at 0851 by ZITA HILL Amended: Links added.
[2019-10-09] MEDS: ENOXAPARIN SODIUM 40 MG/0.4 ML SYRINGE SQ SCH (09:00)
[2019-10-09] MEDS: FAMOTIDINE/PF 20 MG/2 ML VIAL IV SCH (09:00)
[2019-10-09] MEDS: METOPROLOL TARTRATE 25 MG TAB PO SCH ×2 (09:00→21:00)
[2019-10-09] MEDS: LISINOPRIL 10 MG TABLET PO SCH (09:00)
[2019-10-09] MEDS: AMLODIPINE BESYLATE 5 MG TAB PO SCH (09:00)
[2019-10-09] MEDS ORDERED: LISINOPRIL 5 MG TABLET ONE (11:00)
[2019-10-09] MEDS ORDERED: ENOXAPARIN SODIUM 40 MG/0.4 ML SYRINGE SQ ONE (11:01)
[2019-10-09] MEDS ORDERED: AMLODIPINE BESYLATE 5 MG TAB ONE (11:01)
[2019-10-09] MEDS ORDERED: METOPROLOL TARTRATE 25 MG TAB ONE ×2 (11:01→21:17)
[2019-10-09] MEDS ORDERED: METOPROLOL TARTRATE 50 MG TAB ONE ×2 (11:01→21:16)
[2019-10-09 20:00] VITALS: BP 134/79
[2019-10-09] MEDS ORDERED: FAMOTIDINE/PF 20 MG/2 ML VIAL IV ONE (21:17)
[2019-10-09 22:56] LABS: BASOPHILS % (AUTO) 0.3 % (0.0-5.0); EOSINOPHILS % (AUTO) 0.4 % (0.0-8.0); LYMPHOCYTES % (AUTO) 5.3 % (21.0-51.0); MEAN CORPUSCULAR HEMOGLOBIN 28.4 pg (27.0-33.0); MEAN CORPUSCULAR VOLUME 94.6 fL (79-99); MONOCYTES % (AUTO) 5.5 % (3.0-13.0); NEUTROPHILS % (AUTO) 88.1 % (40.0-77.0); PLATELET COUNT (AUTO) 94 K/uL (130-400); RED BLOOD CELL COUNT(AUTO) 3.91 MIL/uL (4.50-6.20); RED CELL DISTRIBUTION WIDTH 16.7 % (11.0-15.5); WHITE BLOOD COUNT (AUTO) 13.9 K/uL (4.8-10.8)
[2019-10-09 23:07] LABS: CREATININE 2.6 mg/dL (0.5-1.5); MAGNESIUM 1.6 mg/dL (1.80-2.40); PHOSPHORUS 4.1 mg/dL (2.5-4.9); POTASSIUM 3.8 mmol/L (3.5-5.1)
[2019-10-09 23:52] LABS: B-TYPE NATRIURETIC PEPTIDE 1340 pg/mL (0-100)
[2019-10-10] VITALS: BP 128/79
--- NOTE | 2019-10-10 00:36 | NUR ---
DONAL BRUNSON NOTIFIED THAT CARDIOLOGY CONSULT PLACED 10/08/19 HAS NOT BEEN DONE YET PER ER NURSE GIVING REPORT STATED TO PASS IT ON AND CONSULT LATER TODAY IN AM.
--- NOTE | 2019-10-10 00:36 | NUR ---
CLERICAL AND OFFICE SUPPORT WORKERS AWARE OF LABS
[2019-10-10] MEDS ORDERED: MAGNESIUM 2GM PREMIX 50ML 50 ML IV PRN (00:45)
[2019-10-10] MEDS ORDERED: MAGNESIUM 2GM PREMIX 50ML 50 ML IV ONE (00:46)
[2019-10-10 04:00] VITALS: BP 128/65
[2019-10-10] MEDS ORDERED: ALLO100T PO (05:11)
[2019-10-10] MEDS ORDERED: METF500S7 PO (05:11)
[2019-10-10] MEDS ORDERED: FURO40SO PO (05:11)
[2019-10-10] MEDS ORDERED: LISI-613 PO (05:11)
[2019-10-10] MEDS ORDERED: HYDR-4153 PO (05:11)
[2019-10-10] MEDS ORDERED: ASCO500C6 PO (05:11)
[2019-10-10] MEDS: ENOXAPARIN SODIUM 40 MG/0.4 ML SYRINGE SQ SCH (09:00)
--- NOTE | 2019-10-10 10:45 | NUR ---
BUMEX DRIP STOPPED, DC'D BY DR BRANHAM. STABLE, DENIES ANY DISTRESS AT THIS TIME.
[2019-10-10 11:41] LABS: APPEARANCE,URINE Cloudy (CLEAR); BILIRUBIN,URINE Negative (NEGATIVE); COLOR,URINE Yellow (YELLOW); GLUCOSE, URINE (UA) Negative (NEGATIVE); KETONES,URINE Negative (NEGATIVE); LEUKOCYTE ESTERASE ,URINE Large (NEGATIVE); NITRATE,URINE Negative (NEGATIVE); OCCULT BLOOD,URINE Moderate (NEGATIVE); PROTEIN,URINE Trace mg/dL (NEGATIVE); UROBILINOGEN,URINE 0.2 mg/dL (0.2-1.0)
[2019-10-10 11:50] LABS: BASOPHILS % (AUTO) 0.5 % (0.0-5.0); EOSINOPHILS % (AUTO) 0.6 % (0.0-8.0); HEMATOCRIT 39.1 % (42-54); LYMPHOCYTES % (AUTO) 5.6 % (21.0-51.0); MEAN CORPUSCULAR HEMOGLOBIN 27.9 pg (27.0-33.0); MEAN CORPUSCULAR HGB CONC 30.2 g/dL (32.0-36.0); MEAN CORPUSCULAR VOLUME 92.4 fL (79-99); MONOCYTES % (AUTO) 7.5 % (3.0-13.0); NEUTROPHILS % (AUTO) 85.3 % (40.0-77.0); PLATELET COUNT (AUTO) 87 K/uL (130-400); RED BLOOD CELL COUNT(AUTO) 4.23 MIL/uL (4.50-6.20); RED CELL DISTRIBUTION WIDTH 16.7 % (11.0-15.5); WHITE BLOOD COUNT (AUTO) 12.8 K/uL (4.8-10.8)
[2019-10-10 12:09] LABS: CARBON DIOXIDE 34 mmol/L (21-32); CHLORIDE 100 mmol/L (101-111); CREATININE 2.1 mg/dL (0.5-1.5); GLOMERULAR FILTR. RATE CALC 33 mL/min (>60); GLUCOSE,RANDOM 181 mg/dL (70-105); POTASSIUM 3.2 mmol/L (3.5-5.1); SODIUM SERUM 142 mmol/L (136-145); UREA NITROGEN, BLOOD 58 mg/dL (7-18)
[2019-10-10 12:11] LABS: BACTERIA,URINE Moderate /HPF (None Seen); MUCUS,URINE Moderate LPF (None Seen); SQUAMOUS EPITHELIAL CELL,UR 0-2 /HPF (0-2); WBC,URINE 51-100 /HPF (0-1)
[2019-10-10 12:13] LABS: PHOSPHORUS 4.2 mg/dL (2.5-4.9)
[2019-10-10 12:47] LABS: % IRON SATURATION 8.4 % (30-44)
[2019-10-10 12:48] LABS: B-TYPE NATRIURETIC PEPTIDE 1430 pg/mL (0-100)
[2019-10-10 14:54] VITALS: BP 125/67
[2019-10-10] MEDS ORDERED: LISINOPRIL 5 MG TABLET ONE (15:00)
[2019-10-10] MEDS ORDERED: AMLODIPINE BESYLATE 5 MG TAB ONE (15:01)
[2019-10-10] MEDS ORDERED: ENOXAPARIN SODIUM 40 MG/0.4 ML SYRINGE SQ ONE (15:01)
[2019-10-10] MEDS ORDERED: METOPROLOL TARTRATE 25 MG TAB ONE (15:01)
[2019-10-10] MEDS ORDERED: FAMOTIDINE/PF 20 MG/2 ML VIAL IV ONE (15:02)
[2019-10-10] MEDS: FAMOTIDINE/PF 20 MG/2 ML VIAL IV SCH (15:09)
[2019-10-10] MEDS: LISINOPRIL 10 MG TABLET PO SCH (15:09)
[2019-10-10] MEDS: AMLODIPINE BESYLATE 5 MG TAB PO SCH (15:09)
[2019-10-10] MEDS: METOPROLOL TARTRATE 25 MG TAB PO SCH ×2 (15:09→20:47)
--- NOTE | 2019-10-10 17:21 | NUR ---
REPORT CALLED TO ARIC LITTLEJOHN FOR CONTINUATION OF CARE. TRANSFERRING TO [facility]
[2019-10-10 18:24] VITALS: BP 128/65
[2019-10-10 20:00] VITALS: BP 128/59
[2019-10-10 23:56] VITALS: BP 141/87
[2019-10-11 03:45] LABS: BASOPHILS % (AUTO) 0.6 % (0.0-5.0); EOSINOPHILS % (AUTO) 2.1 % (0.0-8.0); HEMATOCRIT 36.4 % (42-54); LYMPHOCYTES % (AUTO) 8.1 % (21.0-51.0); MEAN CORPUSCULAR HEMOGLOBIN 28.1 pg (27.0-33.0); MEAN CORPUSCULAR HGB CONC 29.9 g/dL (32.0-36.0); MEAN CORPUSCULAR VOLUME 93.8 fL (79-99); MONOCYTES % (AUTO) 9.3 % (3.0-13.0); NEUTROPHILS % (AUTO) 79.5 % (40.0-77.0); PLATELET COUNT (AUTO) 72 K/uL (130-400); RED BLOOD CELL COUNT(AUTO) 3.88 MIL/uL (4.50-6.20); RED CELL DISTRIBUTION WIDTH 16.3 % (11.0-15.5); WHITE BLOOD COUNT (AUTO) 9.9 K/uL (4.8-10.8)
[2019-10-11 04:00] VITALS: BP 141/73
[2019-10-11 04:15] LABS: CREATININE 1.9 mg/dL (0.5-1.5); MAGNESIUM 1.7 mg/dL (1.80-2.40); PHOSPHORUS 3.9 mg/dL (2.5-4.9); POTASSIUM 3.1 mmol/L (3.5-5.1); THYROID STIMULATING HORMONE 2.18 uIU/mL (0.36-3.74)
--- NOTE | 2019-10-11 06:00 | NUR ---
Informed FRAME EXPANDER Rakan regarding potassium level of 3.1 and bun level 54 and creatinine level of 1.9 with a gfr of of 37. She ordered a one time order of potassium 40 meq.
[2019-10-11] MEDS ORDERED: POTASSIUM CHLORIDE 20 MEQ ERTAB PO SCH (06:15)
[2019-10-11] MEDS ORDERED: POTASSIUM CHLORIDE 20 MEQ ERTAB PO ONE (06:27)
[2019-10-11 08:42] VITALS: BP 122/50
[2019-10-11] MEDS: ENOXAPARIN SODIUM 40 MG/0.4 ML SYRINGE SQ SCH (08:53)
[2019-10-11] MEDS: METOPROLOL TARTRATE 25 MG TAB PO SCH ×2 (08:54→21:22)
[2019-10-11] MEDS: LISINOPRIL 10 MG TABLET PO SCH (08:54)
[2019-10-11] MEDS: FAMOTIDINE/PF 20 MG/2 ML VIAL IV SCH (08:54)
[2019-10-11] MEDS: AMLODIPINE BESYLATE 5 MG TAB PO SCH (08:54)
[2019-10-11] MEDS: Vitamin B Complex/Vit C/Folic Acid PO SCH (08:54)
[2019-10-11] MEDS ORDERED: BUMETANIDE 1 MG TAB PO SCH (09:00)
[2019-10-11 12:13] VITALS: BP 126/65
[2019-10-11] MEDS ORDERED: POTASSIUM CHLORIDE 20 MEQ ERTAB PO PRN (13:00)
[2019-10-11] MEDS ORDERED: POTASSIUM CHLORIDE 10% ELIXIR 20 MEQ/15 ML UDCUP PO PRN (13:00)
[2019-10-11] MEDS ORDERED: LIDOCAINE HCL-MPF 1% 2ML VIAL IV PRN (13:00)
[2019-10-11] MEDS ORDERED: POTASSIUM CHLORIDE 10MEQ/100ML 100 ML IV PRN (13:00)
[2019-10-11 16:55] VITALS: BP 132/61
[2019-10-11 19:05] VITALS: BP 122/80
[2019-10-11] MEDS ORDERED: PHARMACY COMMUNICATION MISC SCH (20:30)
[2019-10-11 23:17] VITALS: BP 132/54
[2019-10-12 03:40] VITALS: BP 145/78
[2019-10-12 06:16] LABS: BASOPHILS % (AUTO) 0.7 % (0.0-5.0); EOSINOPHILS % (AUTO) 4.1 % (0.0-8.0); HEMATOCRIT 38.6 % (42-54); LYMPHOCYTES % (AUTO) 9.7 % (21.0-51.0); MEAN CORPUSCULAR HGB CONC 29.8 g/dL (32.0-36.0); MEAN CORPUSCULAR VOLUME 93.9 fL (79-99); MONOCYTES % (AUTO) 7.3 % (3.0-13.0); NEUTROPHILS % (AUTO) 77.9 % (40.0-77.0); PLATELET COUNT (AUTO) 73 K/uL (130-400); RED BLOOD CELL COUNT(AUTO) 4.11 MIL/uL (4.50-6.20); RED CELL DISTRIBUTION WIDTH 15.8 % (11.0-15.5)
[2019-10-12 06:28] LABS: CREATININE 1.5 mg/dL (0.5-1.5); MAGNESIUM 2.4 mg/dL (1.80-2.40); POTASSIUM 3.5 mmol/L (3.5-5.1)
[2019-10-12 08:00] VITALS: BP 146/78
[2019-10-12] MEDS ORDERED: BUMETANIDE 1 MG TAB PO SCH (08:00)
[2019-10-12] MEDS ORDERED: AMLO5TAB4 PO (08:20)
[2019-10-12] MEDS ORDERED: BUME1TAB6 PO (08:20)
[2019-10-12] MEDS ORDERED: LISI10TA7 PO (08:20)
[2019-10-12] MEDS ORDERED: METO25 PO (08:20)
[2019-10-12] MEDS: FAMOTIDINE/PF 20 MG/2 ML VIAL IV SCH (08:34)
[2019-10-12] MEDS: LISINOPRIL 10 MG TABLET PO SCH (08:34)
[2019-10-12] MEDS: METOPROLOL TARTRATE 25 MG TAB PO SCH (08:34)
[2019-10-12] MEDS: ENOXAPARIN SODIUM 40 MG/0.4 ML SYRINGE SQ SCH (08:34)
[2019-10-12] MEDS: Vitamin B Complex/Vit C/Folic Acid PO SCH (08:35)
[2019-10-12] MEDS: AMLODIPINE BESYLATE 5 MG TAB PO SCH (08:35)
[2019-10-12 11:12] VITALS: BP 138/65
--- NOTE | 2019-10-12 12:07 | NUR ---
Patient discharged at this time in stable condition. DC instructions given. Patient verbalized understanding. Prescription with patient. Patient has agreed to follow up with Zechariah in 7 days. He is aware he needs to call to make an appointment. Phone number to Dr Apple's office provided and in dc paperwork.
== END 2019-10-12 12:42 | disposition home or self-care (01) | DRG 291 ==
LOC: EDH 12:43 → EDHIP 15:52 → 4AH 10-10 18:22
PROVIDERS: ADMIT Internal Medicine; ATTEND Internal Medicine
DX: I13.0 Hypertensive heart and chronic kidney disease with heart failure and stage 1 through stage 4 chronic kidney disease, or unspecified chronic kidney disease (principal); I50.23 Acute on chronic systolic (congestive) heart failure; N17.9 Acute kidney failure, unspecified; I48.19 Other persistent atrial fibrillation; C22.0 Liver cell carcinoma; I42.9 Cardiomyopathy, unspecified; N18.3 Chronic kidney disease, stage 3 (moderate); E11.51 Type 2 diabetes mellitus with diabetic peripheral angiopathy without gangrene; E78.5 Hyperlipidemia, unspecified; D64.9 Anemia, unspecified; D69.6 Thrombocytopenia, unspecified; D72.829 Elevated white blood cell count, unspecified; E11.22 Type 2 diabetes mellitus with diabetic chronic kidney disease; E83.42 Hypomagnesemia; I08.1 Rheumatic disorders of both mitral and tricuspid valves; R16.0 Hepatomegaly, not elsewhere classified; I25.10 Atherosclerotic heart disease of native coronary artery without angina pectoris; I27.20 Pulmonary hypertension, unspecified; Z79.899 Other long term (current) drug therapy; Z85.05 Personal history of malignant neoplasm of liver
CPT/HCPCS: 36415; 71045; 74176; 76700; 80048; 80053; 81001; 82105; 82378; 82550; 82948; 83036; 83540; 83550; 83735; 83880; 84100; 84145; 84443; 84484; 84550; 85025; 85610; 85730; 86316; 87040; 87088; 87804; 93005; 93970; G0378; J1650; J3475; J3490

== ENCOUNTER → 2020-10-06 | Outpatient (CLI) | payer OTHER ==
[~2020-10-06] MED LIST changes: -AMLO-258 PO; +AMLO5TAB4 PO; +ASCO500C6 PO; -ASCO500T10 PO; +BUME1TAB6 PO; -FERR324T4 PO; +FURO40SO PO; +LISI10TA24 PO; -LISI1TAB51 PO; +LISI20TA24 PO; -METF-444 PO; +METF500S7 PO; +METO25 PO
== END | disposition home or self-care (01) ==
LOC: RAH 09:15
PROVIDERS: ATTEND Internal Medicine Gastroenterology
DX: K74.60 Unspecified cirrhosis of liver (principal); I70.0 Atherosclerosis of aorta; R16.0 Hepatomegaly, not elsewhere classified
CPT/HCPCS: 76700; 93975

== ENCOUNTER 2020-11-11 08:27 | Day surgery (SDC) | payer OTHER ==
[2020-11-11] VITALS (10 sets, daily range): BP systolic 109–161; BP diastolic 54–102
[2020-11-11] MEDS ORDERED: NACL 0.9% 1000ML 1,000 ML IV ONE (08:59)
[2020-11-11 09:05] LABS: INR 0.99 (0.85-1.15); PROTHROMBIN TIME 10.8 SEC (9.6-11.6)
[2020-11-11 09:06] LABS: PARTIAL THROMBOPLASTIN TIME 24.9 SEC (26.3-35.5)
[2020-11-11] MEDS ORDERED: MIDAZOLAM HCL 1 MG/ML 2ML VIAL ONE (10:41)
[2020-11-11] MEDS ORDERED: FENTANYL CITRATE PF 50 MCG/1 ML 2ML VIAL ONE (10:41)
== END 2020-11-11 16:20 | disposition home or self-care (01) ==
LOC: DAH 08:27 → EDSTATUS 09:00 → DAH 16:20
PROVIDERS: ATTEND Internal Medicine Hematology & Oncology
DX: R16.0 Hepatomegaly, not elsewhere classified (principal); Z79.01 Long term (current) use of anticoagulants; Z79.899 Other long term (current) drug therapy
CPT/HCPCS: 36415; 47000; 76942; 82948; 85610; 85730; A4215; A4216; A4221; A4222; A4223 ×3; A4606; A4663; C2615; J2250; J3010; J7030 ×2; 96365; 99153

== ENCOUNTER 2021-06-26 17:51 | Inpatient (IN) | payer OTHER ==
[~2021-06-26] VITALS: Ht 154.9 cm; Wt 50.0 kg
[2021-06-26 18:29] LABS: BASOPHILS % (AUTO) 0.5 % (0.0-5.0); EOSINOPHILS % (AUTO) 1.1 % (0.0-8.0); HEMATOCRIT 49.2 % (42-54); LYMPHOCYTES % (AUTO) 8.3 % (21.0-51.0); MEAN CORPUSCULAR HGB CONC 32.5 g/dL (32.0-36.0); MEAN CORPUSCULAR VOLUME 92.3 fL (79-99); MONOCYTES % (AUTO) 5.2 % (3.0-13.0); NEUTROPHILS % (AUTO) 84.3 % (40.0-77.0); PLATELET COUNT (AUTO) 159 K/uL (130-400); RED BLOOD CELL COUNT(AUTO) 5.33 MIL/uL (4.50-6.20); RED CELL DISTRIBUTION WIDTH 14.1 % (11.0-15.5); WHITE BLOOD COUNT (AUTO) 9.5 K/uL (4.8-10.8)
[2021-06-26] MEDS ORDERED: DILTIAZEM 125MG+100 ML NS 125 ML IV PRN (18:30)
[2021-06-26 18:53] LABS: APPEARANCE,URINE Clear (CLEAR); BILIRUBIN,URINE Negative (NEGATIVE); COLOR,URINE Yellow (YELLOW); GLUCOSE, URINE (UA) >=1000 mg/dL (NEGATIVE); KETONES,URINE Trace mg/dL (NEGATIVE); LEUKOCYTE ESTERASE ,URINE Negative (NEGATIVE); NITRATE,URINE Negative (NEGATIVE); OCCULT BLOOD,URINE Moderate (NEGATIVE); PH,URINE 5.5 (5.0-8.0); PROTEIN,URINE 300 mg/dL (NEGATIVE)
[2021-06-26 19:08] LABS: ALBUMIN 3.1 g/dL (3.5-5.0); CREATININE 2.2 mg/dL (0.5-1.5); MAGNESIUM 2.1 mg/dL (1.80-2.40); POTASSIUM 3.6 mmol/L (3.5-5.1); TOTAL PROTEIN, SERUM 7.8 g/dL (6.0-8.3)
[2021-06-26 19:10] LABS: B-TYPE NATRIURETIC PEPTIDE 719 pg/mL (0-100)
[2021-06-26] MEDS ORDERED: DILTIAZEM 50MG VIAL IV ONE (19:17)
[2021-06-26] MEDS ORDERED: INSULIN HUMULIN R 100 UNIT/ML 3ML ONE (19:17)
[2021-06-26] MEDS ORDERED: 0.9%NACL 1000ML 1,000 ML IV ONE (19:18)
[2021-06-26] MEDS ORDERED: INSULIN HUMULIN R 100 UNIT/ML 3ML IV ONE (19:30)
[2021-06-26] MEDS ORDERED: 0.9%NACL 1000ML 1,000 ML IV SCH (19:30)
[2021-06-26] MEDS ORDERED: DILTIAZEM 50MG VIAL IV SCH (19:30)
[2021-06-26 19:32] LABS: INR 1.08 (0.85-1.15); PROTHROMBIN TIME 11.7 SEC (9.6-11.6)
[2021-06-26 19:34] LABS: PARTIAL THROMBOPLASTIN TIME 24.7 SEC (26.3-35.5)
[2021-06-26 19:41] LABS: BACTERIA,URINE Rare /HPF (None Seen); RBC,URINE 0-1 /HPF (0-1); SQUAMOUS EPITHELIAL CELL,UR None Seen /HPF (0-2); WBC,URINE 0-1 /HPF (0-1)
[2021-06-26 20:57] LABS: AMPHET/METH SCREEN,URINE NEGATIVE (NEGATIVE); BARBITURATE SCREEN, URINE NEGATIVE (NEGATIVE); BENZODIAZEPINES SCREEN,URINE NEGATIVE (NEGATIVE); CANNABINOID SCREEN,URINE NEGATIVE (NEGATIVE); COCAINE SCREEN,URINE NEGATIVE (NEGATIVE); OPIATE SCREEN,URINE NEGATIVE (NEGATIVE); PHENCYCLIDINE SCREEN,URINE NEGATIVE (NEGATIVE)
[2021-06-26] MEDS: 0.9%NACL 1000ML 1,000 ML IV SCH (21:52)
[2021-06-27 08:11] LABS: BASOPHILS % (AUTO) 0.7 % (0.0-5.0); EOSINOPHILS % (AUTO) 2.2 % (0.0-8.0); HEMATOCRIT 43.1 % (42-54); LYMPHOCYTES % (AUTO) 12.7 % (21.0-51.0); MEAN CORPUSCULAR HEMOGLOBIN 30.6 pg (27.0-33.0); MEAN CORPUSCULAR HGB CONC 33.2 g/dL (32.0-36.0); MEAN CORPUSCULAR VOLUME 92.1 fL (79-99); MONOCYTES % (AUTO) 6.4 % (3.0-13.0); NEUTROPHILS % (AUTO) 77.5 % (40.0-77.0); PLATELET COUNT (AUTO) 138 K/uL (130-400); RED BLOOD CELL COUNT(AUTO) 4.68 MIL/uL (4.50-6.20); RED CELL DISTRIBUTION WIDTH 13.9 % (11.0-15.5)
[2021-06-27 08:19] LABS: HEMOGLOBIN A1C 13.4 % (4.0-6.0)
[2021-06-27] MEDS: INSULIN HUMULIN R 100 UNIT/ML 3ML SQ SCH ×4 (08:28→21:33)
[2021-06-27] MEDS ORDERED: FAMOTIDINE 20MG TAB ONE (08:32)
[2021-06-27 08:34] LABS: CREATININE 1.6 mg/dL (0.5-1.5); MAGNESIUM 1.8 mg/dL (1.80-2.40); THYROID STIMULATING HORMONE 1.18 uIU/mL (0.36-3.74)
[2021-06-27 08:35] LABS: POTASSIUM 2.7 mmol/L (3.5-5.1)
[2021-06-27] MEDS ORDERED: MAGNESIUM 2GM PREMIX 50ML 50 ML IV PRN (09:30)
[2021-06-27] MEDS ORDERED: POTASSIUM CHLORIDE 10% ELIXIR 20 MEQ/15 ML UDCUP PO PRN (09:30)
[2021-06-27] MEDS ORDERED: PHARMACY COMMUNICATION MISC SCH (09:30)
[2021-06-27] MEDS ORDERED: 0.9%NACL 50ML 50 ML IV ONE (09:46)
[2021-06-27] MEDS: ZOSYN 3.375GM+NS 50ML 50 ML IV SCH ×2 (09:47→21:34)
[2021-06-27] MEDS: POTASSIUM CHLORIDE 20MEQ/100ML 100 ML IV PRN ×2 (11:40→17:41)
[2021-06-27] MEDS: METOPROLOL TARTRATE 25 MG TAB PO SCH ×2 (13:22→21:33)
[2021-06-27] MEDS: LISINOPRIL 20 MG TABLET PO SCH (13:22)
[2021-06-27] MEDS: BUMETANIDE 1 MG TAB PO SCH (13:22)
[2021-06-27] MEDS ORDERED: LIDOCAINE HCL-MPF 1% 2ML VIAL ONE ×2 (16:45→17:33)
[2021-06-27] MEDS: 0.9%NACL 1000ML 1,000 ML IV SCH ×2 (19:33→22:57)
[2021-06-27] MEDS: INSULIN GLARGINE 100 UNITS/ML 10 ML VIAL SQ SCH (21:34)
[2021-06-28 07:20] LABS: BASOPHILS % (AUTO) 0.8 % (0.0-5.0); EOSINOPHILS % (AUTO) 2.5 % (0.0-8.0); HEMATOCRIT 45.1 % (42-54); LYMPHOCYTES % (AUTO) 14.4 % (21.0-51.0); MEAN CORPUSCULAR HGB CONC 32.2 g/dL (32.0-36.0); MEAN CORPUSCULAR VOLUME 93.2 fL (79-99); MONOCYTES % (AUTO) 6.4 % (3.0-13.0); NEUTROPHILS % (AUTO) 75.1 % (40.0-77.0); PLATELET COUNT (AUTO) 152 K/uL (130-400); RED BLOOD CELL COUNT(AUTO) 4.84 MIL/uL (4.50-6.20); RED CELL DISTRIBUTION WIDTH 13.9 % (11.0-15.5); WHITE BLOOD COUNT (AUTO) 8.4 K/uL (4.8-10.8)
[2021-06-28] MEDS: INSULIN HUMULIN R 100 UNIT/ML 3ML SQ SCH ×4 (07:30→22:07)
[2021-06-28 07:36] LABS: BILIRUBIN,TOTAL 0.5 mg/dL (0.2-1.0); CREATININE 1.5 mg/dL (0.5-1.5); TOTAL PROTEIN, SERUM 5.8 g/dL (6.0-8.3)
[2021-06-28 07:39] LABS: HEMOGLOBIN A1C 13.4 % (4.0-6.0); POTASSIUM 2.8 mmol/L (3.5-5.1)
[2021-06-28] MEDS ORDERED: LIDOCAINE HCL-MPF 1% 2ML VIAL ONE (08:31)
[2021-06-28] MEDS: LISINOPRIL 20 MG TABLET PO SCH (08:59)
[2021-06-28] MEDS: ZOSYN 3.375GM+NS 50ML 50 ML IV SCH ×2 (08:59→22:05)
[2021-06-28] MEDS: METOPROLOL TARTRATE 25 MG TAB PO SCH ×2 (08:59→22:05)
[2021-06-28] MEDS ORDERED: FAMOTIDINE 20MG TAB PO SCH (09:00)
[2021-06-28] MEDS: POTASSIUM CHLORIDE 20MEQ/100ML 100 ML IV PRN (09:01)
[2021-06-28] MEDS: BUMETANIDE 1 MG TAB PO SCH (09:05)
[2021-06-28] MEDS: KCL 20 MEQ ERTAB PO SCH (12:00)
[2021-06-28] MEDS ORDERED: PANTOPRAZOLE 40 MG TAB DR PO SCH (13:00)
[2021-06-28] MEDS: PANTOPRAZOLE 40 MG TAB DR PO SCH (13:00)
[2021-06-28 21:30] VITALS: BP 125/59
[2021-06-28] MEDS: INSULIN GLARGINE 100 UNITS/ML 10 ML VIAL SQ SCH (22:06)
[2021-06-29] VITALS: BP 148/70
[2021-06-29 04:00] VITALS: BP 160/77
[2021-06-29] MEDS: INSULIN HUMULIN R 100 UNIT/ML 3ML SQ SCH ×5 (05:27→21:47)
[2021-06-29 08:00] VITALS: BP_SYST 122; BP_SYST 161; BP_DIAS 71; BP_DIAS 76
[2021-06-29] MEDS: ZOSYN 3.375GM+NS 50ML 50 ML IV SCH ×2 (09:18→21:47)
[2021-06-29] MEDS: LISINOPRIL 20 MG TABLET PO SCH (09:18)
[2021-06-29] MEDS: BUMETANIDE 1 MG TAB PO SCH (09:19)
[2021-06-29] MEDS: CLOPIDOGREL 75MG TAB PO SCH ×2 (09:19→09:20)
[2021-06-29] MEDS: METOPROLOL TARTRATE 25 MG TAB PO SCH ×2 (09:22→21:23)
[2021-06-29] MEDS: PANTOPRAZOLE 40 MG TAB DR PO SCH (09:22)
[2021-06-29] MEDS: KCL 20 MEQ ERTAB PO SCH ×2 (09:24→17:20)
[2021-06-29 12:00] VITALS: BP 112/60
[2021-06-29] MEDS: KCL 20 MEQ ERTAB PO PRN (12:29)
[2021-06-29 16:00] VITALS: BP 128/73
[2021-06-29 21:18] VITALS: BP 143/94
[2021-06-29] MEDS: INSULIN GLARGINE 100 UNITS/ML 10 ML VIAL SQ SCH (21:46)
[2021-06-30] VITALS: BP 150/82
[2021-06-30] MEDS: POTASSIUM CHLORIDE 20MEQ/100ML 100 ML IV PRN (03:05)
[2021-06-30 04:00] VITALS: BP 128/65
[2021-06-30] MEDS: KCL 20 MEQ ERTAB PO PRN (04:11)
[2021-06-30] MEDS: INSULIN HUMULIN R 100 UNIT/ML 3ML SQ SCH ×4 (07:30→11:30)
[2021-06-30 08:00] VITALS: BP 132/96
[2021-06-30] MEDS: METOPROLOL TARTRATE 25 MG TAB PO SCH (11:28)
[2021-06-30] MEDS: ZOSYN 3.375GM+NS 50ML 50 ML IV SCH (11:29)
[2021-06-30] MEDS: PANTOPRAZOLE 40 MG TAB DR PO SCH (11:29)
[2021-06-30] MEDS: LISINOPRIL 20 MG TABLET PO SCH (11:29)
[2021-06-30] MEDS: CLOPIDOGREL 75MG TAB PO SCH (11:30)
[2021-06-30] MEDS: BUMETANIDE 1 MG TAB PO SCH (11:30)
[2021-06-30 11:31] VITALS: BP 129/75
== END 2021-06-30 15:37 | DRG 64 ==
LOC: EDH 17:51 → EDHIP 20:19 → 4CH 06-28 20:30
PROVIDERS: ADMIT Internal Medicine; ATTEND Internal Medicine
DX: I63.9 Cerebral infarction, unspecified (principal); G93.41 Metabolic encephalopathy; N17.9 Acute kidney failure, unspecified; I48.19 Other persistent atrial fibrillation; G96.08 Other cranial cerebrospinal fluid leak; E46 Unspecified protein-calorie malnutrition; I13.0 Hypertensive heart and chronic kidney disease with heart failure and stage 1 through stage 4 chronic kidney disease, or unspecified chronic kidney disease; R29.702 NIHSS score 2; N18.30 Chronic kidney disease, stage 3 unspecified; E11.22 Type 2 diabetes mellitus with diabetic chronic kidney disease; D18.1 Lymphangioma, any site; E11.649 Type 2 diabetes mellitus with hypoglycemia without coma; E78.5 Hyperlipidemia, unspecified; E86.0 Dehydration; E86.1 Hypovolemia; E87.6 Hypokalemia; E88.09 Other disorders of plasma-protein metabolism, not elsewhere classified; F02.80 Dementia in other diseases classified elsewhere, unspecified severity, without behavioral disturbance, psychotic disturbance, mood disturbance, and anxiety; F10.10 Alcohol abuse, uncomplicated; G30.9 Alzheimer's disease, unspecified; G31.9 Degenerative disease of nervous system, unspecified; I08.0 Rheumatic disorders of both mitral and aortic valves; I25.10 Atherosclerotic heart disease of native coronary artery without angina pectoris; I50.9 Heart failure, unspecified; Z20.822 Contact with and (suspected) exposure to COVID-19; R13.10 Dysphagia, unspecified; E87.8 Other disorders of electrolyte and fluid balance, not elsewhere classified; G51.39 Clonic hemifacial spasm, unspecified; E11.65 Type 2 diabetes mellitus with hyperglycemia; R32 Unspecified urinary incontinence; R47.02 Dysphasia; R62.7 Adult failure to thrive; Z68.20 Body mass index [BMI] 20.0-20.9, adult; Z79.02 Long term (current) use of antithrombotics/antiplatelets; Z79.4 Long term (current) use of insulin; Z79.899 Other long term (current) drug therapy; Z87.891 Personal history of nicotine dependence; Z85.05 Personal history of malignant neoplasm of liver; Z91.14 Patient's other noncompliance with medication regimen; Z80.9 Family history of malignant neoplasm, unspecified; Z83.3 Family history of diabetes mellitus; Z82.49 Family history of ischemic heart disease and other diseases of the circulatory system
CPT/HCPCS: 36415; 70450; 70551; 71045; 74230; 80048; 80053; 80061; 80305; 81001; 82140; 82550; 82948; 83036; 83605; 83735; 83880; 84100; 84132; 84145; 84443; 84484; 85025; 85610; 85730; 86140; 87040; 87077; 87088; 87186; 87635; 92522; 92526; 92610; 92611; 93005; 93306; 93356; 93880; 97039; 99291; C9803; G0378; J1815; J2543; J3480; J3490; J7030

== ENCOUNTER 2021-09-06 17:28 | Inpatient (IN) | payer OTHER ==
[~2021-09-06] VITALS: Ht 162.6 cm; Wt 55.5 kg
[~2021-09-06 17:28] MED LIST changes: +AMLO-257 PO; -AMLO5TAB4 PO; -ASCO500C6 PO; -FURO40SO PO; -INSLAN SQ; -INSU100I3 SQ; -LISI10TA24 PO; +METF-444 PO; -METF500S7 PO; -METO25 PO; -METO50 PO; +METO75TA PO; -PANT40TA PO; -PRAV40TA3 PO; +PRAV80TA21 PO; -SUCR1TAB PO; +SUCR1TAB2 PO
[2021-09-06 18:18] LABS: HEMATOCRIT 43.7 % (42-54); MEAN CORPUSCULAR HEMOGLOBIN 30.4 pg (27.0-33.0); MEAN CORPUSCULAR HGB CONC 33.4 g/dL (32.0-36.0); MEAN CORPUSCULAR VOLUME 90.9 fL (79-99); PLATELET COUNT (AUTO) 193 K/uL (130-400); RED BLOOD CELL COUNT(AUTO) 4.81 MIL/uL (4.50-6.20); RED CELL DISTRIBUTION WIDTH 14.2 % (11.0-15.5); WHITE BLOOD COUNT (AUTO) 13.2 K/uL (4.8-10.8)
[2021-09-06 18:35] LABS: EOSINOPHILS % (MANUAL) 2 % (1-6); LYMPHOCYTES % (MANUAL) 2 % (22-44); MAN.DIFF COMMENT-IMPRESSION MANUAL DIFFERENTIAL; MONOCYTES % (MANUAL) 3 % (2-9); REACTIVE LYMPHOCYTES 1 % (0-0); SEGMENTED NEUTROPHILS % 92 % (40-70)
[2021-09-06 18:36] LABS: PLATELET MORPHOLOGY COMMENT LARGE PLTS PRESENT
[2021-09-06 18:47] LABS: ALBUMIN 2.8 g/dL (3.5-5.0); BILIRUBIN,TOTAL 0.3 mg/dL (0.2-1.0); CREATININE 2.3 mg/dL (0.5-1.5); POTASSIUM 4.4 mmol/L (3.5-5.1); TOTAL PROTEIN, SERUM 6.9 g/dL (6.0-8.3)
[2021-09-06] MEDS ORDERED: 0.9%NACL 1000ML 2,000 ML IV ONE ×2 (19:23→19:30)
[2021-09-06] MEDS ORDERED: ONDANSETRON 4MG INJ ONE (19:23)
[2021-09-06] MEDS ORDERED: 0.9%NACL 100ML 100 ML ONE (19:24)
[2021-09-06] MEDS ORDERED: INSULIN HUMULIN R 100 UNIT/ML 3ML ONE (19:26)
[2021-09-06] MEDS ORDERED: INSULIN REGULAR, HUMAN 3ML 100 UNIT in 0.9%NACL 100ML 99 ML IV SCH ×2 (19:30)
[2021-09-06 20:44] LABS: APPEARANCE,URINE Clear (CLEAR); BILIRUBIN,URINE Negative (NEGATIVE); COLOR,URINE Yellow (YELLOW); GLUCOSE, URINE (UA) >=1000 mg/dL (NEGATIVE); KETONES,URINE Negative (NEGATIVE); LEUKOCYTE ESTERASE ,URINE Negative (NEGATIVE); NITRATE,URINE Negative (NEGATIVE); OCCULT BLOOD,URINE Negative (NEGATIVE); PH,URINE 5.5 (5.0-8.0); PROTEIN,URINE POS 2+ mg/dL (NEGATIVE); UROBILINOGEN,URINE 0.2 mg/dL (0.2-1.0)
[2021-09-06 20:53] LABS: RBC,URINE 0-1 /HPF (0-1); WBC,URINE 0-1 /HPF (0-1)
[2021-09-06 20:54] LABS: BACTERIA,URINE Rare /HPF (None Seen); SQUAMOUS EPITHELIAL CELL,UR Rare /HPF (0-2)
[2021-09-07] MEDS ORDERED: 0.9%NACL 1000ML 1,000 ML IV ONE (01:22)
[2021-09-07] MEDS ORDERED: GLUCAGON 1MG KIT 1 MG ML IM PRN (08:30)
[2021-09-07] MEDS ORDERED: DEXTROSE 50%-WATER 50 ML DISP.SYRIN IV PRN (08:30)
[2021-09-07 09:54] VITALS: BP 155/78
[2021-09-07] MEDS ORDERED: INSULIN HUMULIN R 100 UNIT/ML 3ML SQ SCH (11:30)
== END 2021-09-07 13:16 | disposition home health service (06) | DRG 639 ==
LOC: EDH 17:28 → EDHIP 21:49 → 4BH 09-07 09:54
PROVIDERS: ADMIT Internal Medicine Hematology & Oncology; ATTEND Internal Medicine Hematology & Oncology
DX: E11.00 Type 2 diabetes mellitus with hyperosmolarity without nonketotic hyperglycemic-hyperosmolar coma (NKHHC) (principal); Z91.19 Patient's noncompliance with other medical treatment and regimen; N18.9 Chronic kidney disease, unspecified; Z20.822 Contact with and (suspected) exposure to COVID-19; F03.90 Unspecified dementia, unspecified severity, without behavioral disturbance, psychotic disturbance, mood disturbance, and anxiety; E78.00 Pure hypercholesterolemia, unspecified; E11.22 Type 2 diabetes mellitus with diabetic chronic kidney disease; I12.9 Hypertensive chronic kidney disease with stage 1 through stage 4 chronic kidney disease, or unspecified chronic kidney disease; E86.0 Dehydration; K74.60 Unspecified cirrhosis of liver; Z85.05 Personal history of malignant neoplasm of liver
CPT/HCPCS: 36415; 70450; 71045; 80053; 81001; 82947; 82948; 83605; 84484; 85025; 87040; 87635; 87804; 93005; 99291; C9803; G0378; J1815; J2405; J7030

== ENCOUNTER 2021-10-12 16:15 | Inpatient (IN) | payer MEDICARE, OTHER ==
[~2021-10-12] VITALS: Ht 162.6 cm; Wt 56.3 kg
[2021-10-12] MEDS ORDERED: DILTIAZEM 25MG INJ IVP ONE ×2 (17:00→17:30)
[2021-10-12 17:27] LABS: BASOPHILS % (AUTO) 0.7 % (0.0-5.0); EOSINOPHILS % (AUTO) 1.1 % (0.0-8.0); HEMATOCRIT 44.3 % (42-54); LYMPHOCYTES % (AUTO) 11.7 % (21.0-51.0); MEAN CORPUSCULAR HGB CONC 32.7 g/dL (32.0-36.0); MEAN CORPUSCULAR VOLUME 88.6 fL (79-99); MONOCYTES % (AUTO) 7.5 % (3.0-13.0); NEUTROPHILS % (AUTO) 78.3 % (40.0-77.0); PLATELET COUNT (AUTO) 241 K/uL (130-400); RED CELL DISTRIBUTION WIDTH 14.6 % (11.0-15.5); WHITE BLOOD COUNT (AUTO) 12.3 K/uL (4.8-10.8)
[2021-10-12] MEDS: DILTIAZEM 125 MG/25 ML INJ 125 MG in 0.9%NACL 100ML 100 ML IV SCH (17:38)
[2021-10-12 17:39] LABS: CREATININE 1.8 mg/dL (0.5-1.5); POTASSIUM 4.3 mmol/L (3.5-5.1)
[2021-10-12 17:49] LABS: ALBUMIN 2.3 g/dL (3.5-5.0); BILIRUBIN,TOTAL 0.6 mg/dL (0.2-1.0); TOTAL PROTEIN, SERUM 7.1 g/dL (6.0-8.3)
[2021-10-12] MEDS ORDERED: DILTIAZEM 25MG INJ IVP PRN (18:00)
[2021-10-12 18:45] LABS: APPEARANCE,URINE Clear (CLEAR); BILIRUBIN,URINE Negative (NEGATIVE); COLOR,URINE Yellow (YELLOW); GLUCOSE, URINE (UA) 250 mg/dL (NEGATIVE); KETONES,URINE Negative (NEGATIVE); LEUKOCYTE ESTERASE ,URINE Negative (NEGATIVE); NITRATE,URINE Negative (NEGATIVE); OCCULT BLOOD,URINE Small (NEGATIVE); PROTEIN,URINE >=1000 mg/dL (NEGATIVE)
[2021-10-12 18:56] LABS: BACTERIA,URINE Rare /HPF (None Seen); MUCUS,URINE Moderate LPF (None Seen); SQUAMOUS EPITHELIAL CELL,UR Few /HPF (0-2); WBC,URINE 0-1 /HPF (0-1)
[2021-10-12] MEDS ORDERED: ASPIRIN 325MG TAB PO ONE (19:00)
[2021-10-12] MEDS ORDERED: FUROSEMIDE 20MG VIAL IV ONE (19:00)
[2021-10-12] MEDS ORDERED: ENOXAPARIN SODIUM 1 MG/KG SQ SCH (19:00)
[2021-10-12] MEDS ORDERED: PANT40TA54 PO (20:47)
[2021-10-12] MEDS ORDERED: INSULIN FLEX SQ (20:49)
[2021-10-12] MEDS ORDERED: ACET-66 PO (21:20)
[2021-10-12] MEDS ORDERED: ASCO500T10 PO (21:21)
[2021-10-12] MEDS ORDERED: FERR500P12 MC (21:21)
[2021-10-12] MEDS ORDERED: LACT10SO62 PO (21:23)
[2021-10-12] MEDS ORDERED: ALBUTEROL INH IH (21:24)
[2021-10-12] MEDS ORDERED: OMEGA 3 PO (21:25)
[2021-10-12] MEDS ORDERED: ENOXAPARIN SODIUM 60 MG/0.6 ML SQ ONE (22:51)
[2021-10-13] MEDS ORDERED: INSULIN HUMULIN R 100 UNIT/ML 3ML ONE (00:40)
[2021-10-13 01:20] VITALS: BP 153/99
[2021-10-13 04:00] VITALS: BP 164/91
[2021-10-13 07:39] LABS: HEMATOCRIT 44.1 % (42-54); MEAN CORPUSCULAR HEMOGLOBIN 28.9 pg (27.0-33.0); MEAN CORPUSCULAR HGB CONC 32.7 g/dL (32.0-36.0); MEAN CORPUSCULAR VOLUME 88.6 fL (79-99); RED BLOOD CELL COUNT(AUTO) 4.98 MIL/uL (4.50-6.20); RED CELL DISTRIBUTION WIDTH 14.4 % (11.0-15.5); WHITE BLOOD COUNT (AUTO) 13.6 K/uL (4.8-10.8)
[2021-10-13 07:46] VITALS: BP 184/79
[2021-10-13 07:55] LABS: ALBUMIN 2.1 g/dL (3.5-5.0); BILIRUBIN,TOTAL 0.6 mg/dL (0.2-1.0); CREATININE 2.1 mg/dL (0.5-1.5); MAGNESIUM 2.2 mg/dL (1.80-2.40); POTASSIUM 3.8 mmol/L (3.5-5.1); TOTAL PROTEIN, SERUM 6.6 g/dL (6.0-8.3)
[2021-10-13 11:57] VITALS: BP 136/99
[2021-10-13] MEDS ORDERED: METOPROLOL TARTRATE 1 MG/ML 5ML VIAL IV SCH (12:00)
[2021-10-13] MEDS ORDERED: GLUCAGON 1MG KIT 1 MG ML IM PRN (12:00)
[2021-10-13] MEDS: FUROSEMIDE 40MG VIAL IV SCH ×2 (12:26→21:10)
[2021-10-13] MEDS ORDERED: MAGNESIUM 2GM PREMIX 50ML 50 ML IV PRN (14:00)
[2021-10-13] MEDS: METOPROLOL SUCCINATE 50 MG TAB.SR.24H PO SCH ×2 (14:20→21:10)
[2021-10-13 14:55] LABS: MAGNESIUM 2.1 mg/dL (1.80-2.40); POTASSIUM 4.4 mmol/L (3.5-5.1)
[2021-10-13 16:05] VITALS: BP 128/65
[2021-10-13] MEDS: INSULIN HUMULIN R 100 UNIT/ML 3ML SQ SCH ×2 (17:20→21:12)
[2021-10-13 19:50] VITALS: BP 113/49
[2021-10-13] MEDS: HYDRALAZINE 25MG TABLET PO SCH (21:00)
[2021-10-13] MEDS ORDERED: METOPROLOL TARTRATE 50 MG TAB PO SCH (21:00)
[2021-10-13 22:08] LABS: BILIRUBIN,URINE Negative (NEGATIVE); COLOR,URINE Dark Yellow (YELLOW); GLUCOSE, URINE (UA) 500 mg/dL (NEGATIVE); KETONES,URINE Negative (NEGATIVE); LEUKOCYTE ESTERASE ,URINE Negative (NEGATIVE); NITRATE,URINE Negative (NEGATIVE); OCCULT BLOOD,URINE Large (NEGATIVE); PROTEIN,URINE >=1000 mg/dL (NEGATIVE)
[2021-10-13 22:12] LABS: APPEARANCE,URINE HAZY (CLEAR)
[2021-10-13 22:18] LABS: AMORPHOUS SEDIMENT,UR Few /LPF (None Seen); BACTERIA,URINE Few /HPF (None Seen); MUCUS,URINE Few LPF (None Seen); RBC,URINE 26-50 /HPF (0-1)
[2021-10-14] VITALS (7 sets, daily range): BP systolic 116–144; BP diastolic 53–89
[2021-10-14] MEDS: FUROSEMIDE 40MG VIAL IV SCH ×4 (00:20→23:30)
[2021-10-14 04:36] LABS: BASOPHILS % (AUTO) 0.3 % (0.0-5.0); EOSINOPHILS % (AUTO) 0.2 % (0.0-8.0); HEMATOCRIT 43.7 % (42-54); LYMPHOCYTES % (AUTO) 8.1 % (21.0-51.0); MEAN CORPUSCULAR HEMOGLOBIN 29.3 pg (27.0-33.0); MEAN CORPUSCULAR HGB CONC 32.5 g/dL (32.0-36.0); MEAN CORPUSCULAR VOLUME 90.1 fL (79-99); MONOCYTES % (AUTO) 5.8 % (3.0-13.0); NEUTROPHILS % (AUTO) 84.7 % (40.0-77.0); NUCLEATED RED BLOOD CELLS 0.1 % (0.0-0.19); PLATELET COUNT (AUTO) 259 K/uL (130-400); RED BLOOD CELL COUNT(AUTO) 4.85 MIL/uL (4.50-6.20); RED CELL DISTRIBUTION WIDTH 14.5 % (11.0-15.5); WHITE BLOOD COUNT (AUTO) 14.7 K/uL (4.8-10.8)
[2021-10-14 05:00] LABS: ALBUMIN 1.9 g/dL (3.5-5.0); BILIRUBIN,TOTAL 0.5 mg/dL (0.2-1.0); CREATININE 2.2 mg/dL (0.5-1.5); MAGNESIUM 2.2 mg/dL (1.80-2.40); PHOSPHORUS 5.5 mg/dL (2.5-4.9); POTASSIUM 3.2 mmol/L (3.5-5.1); TOTAL PROTEIN, SERUM 6.3 g/dL (6.0-8.3)
[2021-10-14] MEDS: DEXTROSE 50%-WATER 50 ML DISP.SYRIN IV PRN (05:22)
[2021-10-14] MEDS: POTASSIUM CHLORIDE 10MEQ/100ML 100 ML IV PRN ×2 (05:51→08:41)
[2021-10-14] MEDS: INSULIN HUMULIN R 100 UNIT/ML 3ML SQ SCH ×4 (07:30→20:36)
[2021-10-14] MEDS: METOPROLOL SUCCINATE 50 MG TAB.SR.24H PO SCH ×2 (08:42→20:36)
[2021-10-14] MEDS: LISINOPRIL 20 MG TABLET PO SCH (08:42)
[2021-10-14] MEDS: LIDOCAINE HCL-MPF 1% 2ML VIAL IV PRN (08:42)
[2021-10-14] MEDS: PANTOPRAZOLE 40 MG/VIAL IVP SCH (08:42)
[2021-10-14] MEDS: HYDRALAZINE 25MG TABLET PO SCH ×2 (08:42→20:35)
[2021-10-14] MEDS: DILTIAZEM 125 MG/25 ML INJ 125 MG in 0.9%NACL 100ML 100 ML IV SCH (11:56)
[2021-10-15 03:49] VITALS: BP 139/79
[2021-10-15] MEDS: DEXTROSE 50%-WATER 50 ML DISP.SYRIN IV PRN (05:14)
[2021-10-15] MEDS: INSULIN HUMULIN R 100 UNIT/ML 3ML SQ SCH ×4 (05:28→20:54)
[2021-10-15 08:30] VITALS: BP 147/84
[2021-10-15 08:30] LABS: HEMATOCRIT 44.3 % (42-54); MEAN CORPUSCULAR HEMOGLOBIN 28.9 pg (27.0-33.0); MEAN CORPUSCULAR HGB CONC 32.3 g/dL (32.0-36.0); MEAN CORPUSCULAR VOLUME 89.7 fL (79-99); PLATELET COUNT (AUTO) 256 K/uL (130-400); RED BLOOD CELL COUNT(AUTO) 4.94 MIL/uL (4.50-6.20); RED CELL DISTRIBUTION WIDTH 14.5 % (11.0-15.5); WHITE BLOOD COUNT (AUTO) 13.9 K/uL (4.8-10.8)
[2021-10-15 08:47] LABS: ALBUMIN 1.9 g/dL (3.5-5.0); BILIRUBIN,TOTAL 0.3 mg/dL (0.2-1.0); POTASSIUM 3.5 mmol/L (3.5-5.1); TOTAL PROTEIN, SERUM 6.2 g/dL (6.0-8.3)
[2021-10-15] MEDS: LISINOPRIL 20 MG TABLET PO SCH (09:00)
[2021-10-15] MEDS: HYDRALAZINE 25MG TABLET PO SCH ×2 (09:00→20:53)
[2021-10-15 10:01] LABS: BASOPHILS % (AUTO) 0.4 % (0.0-5.0); LYMPHOCYTES % (AUTO) 7.3 % (21.0-51.0); MONOCYTES % (AUTO) 5.8 % (3.0-13.0); NEUTROPHILS % (AUTO) 84.9 % (40.0-77.0)
[2021-10-15] MEDS: FUROSEMIDE 40 MG TABLET PO SCH (10:30)
[2021-10-15] MEDS: PANTOPRAZOLE 40 MG/VIAL IVP SCH (10:30)
[2021-10-15] MEDS: METOPROLOL SUCCINATE 50 MG TAB.SR.24H PO SCH ×2 (10:30→20:54)
[2021-10-15 12:25] VITALS: BP 131/62
[2021-10-15 16:30] VITALS: BP 118/51
[2021-10-15 20:00] VITALS: BP 117/98
[2021-10-15 23:38] VITALS: BP 144/74
[2021-10-16 03:30] LABS: HEMATOCRIT 39.3 % (42-54); MEAN CORPUSCULAR HEMOGLOBIN 29.1 pg (27.0-33.0); MEAN CORPUSCULAR HGB CONC 32.3 g/dL (32.0-36.0); MEAN CORPUSCULAR VOLUME 89.9 fL (79-99); PLATELET COUNT (AUTO) 223 K/uL (130-400); RED BLOOD CELL COUNT(AUTO) 4.37 MIL/uL (4.50-6.20); RED CELL DISTRIBUTION WIDTH 14.4 % (11.0-15.5); WHITE BLOOD COUNT (AUTO) 11.1 K/uL (4.8-10.8)
[2021-10-16 03:53] VITALS: BP 139/62
[2021-10-16 04:04] LABS: BASOPHILS % (MANUAL) 2 % (0-2); EOSINOPHILS % (MANUAL) 2 % (1-6); LYMPHOCYTES % (MANUAL) 3 % (22-44); MAN.DIFF COMMENT-IMPRESSION MANUAL DIFFERENTIAL; MONOCYTES % (MANUAL) 3 % (2-9); SEGMENTED NEUTROPHILS % 90 % (40-70)
[2021-10-16] MEDS: INSULIN HUMULIN R 100 UNIT/ML 3ML SQ SCH ×4 (06:08→20:12)
[2021-10-16 08:00] VITALS: BP 164/80
[2021-10-16 08:04] LABS: ALBUMIN 1.8 g/dL (3.5-5.0); BILIRUBIN,TOTAL 0.2 mg/dL (0.2-1.0); CREATININE 2.2 mg/dL (0.5-1.5); POTASSIUM 3.6 mmol/L (3.5-5.1)
[2021-10-16] MEDS: FUROSEMIDE 40 MG TABLET PO SCH (09:00)
[2021-10-16] MEDS: PANTOPRAZOLE 40 MG/VIAL IVP SCH (09:56)
[2021-10-16] MEDS: METOPROLOL SUCCINATE 50 MG TAB.SR.24H PO SCH ×2 (09:56→20:12)
[2021-10-16] MEDS: HYDRALAZINE 25MG TABLET PO SCH ×2 (09:58→20:11)
[2021-10-16] MEDS: LISINOPRIL 20 MG TABLET PO SCH (09:58)
[2021-10-16] MEDS ORDERED: FURO40TA5 PO (10:37)
[2021-10-16] MEDS ORDERED: METO50TA9 PO (10:37)
[2021-10-16 12:00] VITALS: BP 132/66
[2021-10-16 16:00] VITALS: BP 138/89
[2021-10-16 20:33] VITALS: BP 134/68
[2021-10-17 00:08] VITALS: BP 133/70
[2021-10-17 04:00] VITALS: BP 122/76
[2021-10-17 04:07] LABS: HEMATOCRIT 37.2 % (42-54); MEAN CORPUSCULAR HEMOGLOBIN 28.7 pg (27.0-33.0); MEAN CORPUSCULAR HGB CONC 31.7 g/dL (32.0-36.0); MEAN CORPUSCULAR VOLUME 90.5 fL (79-99); PLATELET COUNT (AUTO) 192 K/uL (130-400); RED BLOOD CELL COUNT(AUTO) 4.11 MIL/uL (4.50-6.20); RED CELL DISTRIBUTION WIDTH 14.9 % (11.0-15.5); WHITE BLOOD COUNT (AUTO) 9.1 K/uL (4.8-10.8)
[2021-10-17 04:17] LABS: CREATININE 2.2 mg/dL (0.5-1.5); POTASSIUM 3.7 mmol/L (3.5-5.1)
[2021-10-17 04:29] LABS: LYMPHOCYTES % (MANUAL) 4 % (22-44); MONOCYTES % (MANUAL) 6 % (2-9); SEGMENTED NEUTROPHILS % 90 % (40-70)
[2021-10-17 04:30] LABS: MAN.DIFF COMMENT-IMPRESSION MANUAL DIFFERENTIAL; PLATELET MORPHOLOGY COMMENT ADEQUATE
[2021-10-17] MEDS: INSULIN HUMULIN R 100 UNIT/ML 3ML SQ SCH ×4 (05:46→21:00)
[2021-10-17 08:00] VITALS: BP 145/81
[2021-10-17] MEDS: HYDRALAZINE 25MG TABLET PO SCH ×2 (08:33→21:46)
[2021-10-17] MEDS: LISINOPRIL 20 MG TABLET PO SCH (08:33)
[2021-10-17] MEDS: PANTOPRAZOLE 40 MG/VIAL IVP SCH (08:33)
[2021-10-17] MEDS: FUROSEMIDE 40 MG TABLET PO SCH (08:34)
[2021-10-17] MEDS: METOPROLOL SUCCINATE 50 MG TAB.SR.24H PO SCH ×2 (08:35→21:45)
[2021-10-17 12:00] VITALS: BP 137/59
[2021-10-17 16:56] VITALS: BP 139/84
[2021-10-17 19:41] VITALS: BP 149/75
[2021-10-18] VITALS (7 sets, daily range): BP systolic 137–163; BP diastolic 62–93
[2021-10-18 04:24] LABS: POTASSIUM 3.8 mmol/L (3.5-5.1)
[2021-10-18] MEDS: INSULIN HUMULIN R 100 UNIT/ML 3ML SQ SCH ×4 (06:52→20:29)
[2021-10-18] MEDS: HYDRALAZINE 25MG TABLET PO SCH ×2 (07:48→20:28)
[2021-10-18] MEDS: FUROSEMIDE 40 MG TABLET PO SCH (07:48)
[2021-10-18] MEDS: LISINOPRIL 20 MG TABLET PO SCH (07:48)
[2021-10-18] MEDS: METOPROLOL SUCCINATE 50 MG TAB.SR.24H PO SCH ×2 (07:48→20:25)
[2021-10-18] MEDS: PANTOPRAZOLE 40 MG/VIAL IVP SCH (07:49)
[2021-10-19 03:17] VITALS: BP 161/91
[2021-10-19 04:13] LABS: HEMATOCRIT 38.3 % (42-54); MEAN CORPUSCULAR HEMOGLOBIN 28.9 pg (27.0-33.0); MEAN CORPUSCULAR HGB CONC 31.3 g/dL (32.0-36.0); MEAN CORPUSCULAR VOLUME 92.3 fL (79-99); RED BLOOD CELL COUNT(AUTO) 4.15 MIL/uL (4.50-6.20); WHITE BLOOD COUNT (AUTO) 9.5 K/uL (4.8-10.8)
[2021-10-19 04:31] LABS: CREATININE 1.9 mg/dL (0.5-1.5); POTASSIUM 3.3 mmol/L (3.5-5.1)
[2021-10-19] MEDS: POTASSIUM CHLORIDE 10MEQ/100ML 100 ML IV PRN ×2 (05:19→05:44)
[2021-10-19] MEDS: LIDOCAINE HCL-MPF 1% 2ML VIAL IV PRN (05:19)
[2021-10-19 06:27] VITALS: BP 143/93
[2021-10-19] MEDS: INSULIN HUMULIN R 100 UNIT/ML 3ML SQ SCH ×4 (06:51→20:56)
[2021-10-19] MEDS: FUROSEMIDE 40 MG TABLET PO SCH (07:25)
[2021-10-19] MEDS: LISINOPRIL 20 MG TABLET PO SCH (07:25)
[2021-10-19] MEDS: PANTOPRAZOLE 40 MG TAB DR PO SCH (07:25)
[2021-10-19] MEDS: HYDRALAZINE 25MG TABLET PO SCH ×2 (07:26→20:55)
[2021-10-19] MEDS: METOPROLOL SUCCINATE 50 MG TAB.SR.24H PO SCH ×2 (07:26→20:54)
[2021-10-19 10:56] VITALS: BP 123/59
[2021-10-19] MEDS: AMOX/CLAV 875/125MG TAB PO SCH (12:38)
[2021-10-19 15:44] VITALS: BP 132/80
[2021-10-19 19:57] VITALS: BP 159/79
[2021-10-19 23:48] VITALS: BP 146/63
[2021-10-20 04:25] VITALS: BP 142/69
[2021-10-20] MEDS: INSULIN HUMULIN R 100 UNIT/ML 3ML SQ SCH ×2 (06:34→11:30)
[2021-10-20 08:43] VITALS: BP 146/71
[2021-10-20] MEDS: HYDRALAZINE 25MG TABLET PO SCH (09:00)
[2021-10-20] MEDS: FUROSEMIDE 40 MG TABLET PO SCH (10:04)
[2021-10-20] MEDS: LISINOPRIL 20 MG TABLET PO SCH (10:04)
[2021-10-20] MEDS: PANTOPRAZOLE 40 MG TAB DR PO SCH (10:05)
[2021-10-20] MEDS: METOPROLOL SUCCINATE 50 MG TAB.SR.24H PO SCH (10:05)
[2021-10-20 12:01] VITALS: BP 148/70
[2021-10-20] MEDS: AMOX/CLAV 875/125MG TAB PO SCH (14:53)
[2021-10-20 15:21] LABS: MEAN CORPUSCULAR HEMOGLOBIN 28.8 pg (27.0-33.0); MEAN CORPUSCULAR HGB CONC 31.5 g/dL (32.0-36.0); MEAN CORPUSCULAR VOLUME 91.5 fL (79-99); RED BLOOD CELL COUNT(AUTO) 4.37 MIL/uL (4.50-6.20); WHITE BLOOD COUNT (AUTO) 7.7 K/uL (4.8-10.8)
[2021-10-20 15:31] LABS: CREATININE 1.8 mg/dL (0.5-1.5); POTASSIUM 3.9 mmol/L (3.5-5.1)
[2021-10-20 15:36] LABS: ALBUMIN 1.8 g/dL (3.5-5.0); BILIRUBIN,TOTAL 0.2 mg/dL (0.2-1.0)
[2021-10-23] MEDS ORDERED: INSLAN SQ (00:01)
[2021-10-23] MEDS ORDERED: AMLO-257 PO (00:01)
== END 2021-10-20 16:29 | disposition home or self-care (01) | DRG 291 ==
LOC: EDH 16:15 → EDHIP 19:26 → 2DH 10-13 00:06
PROVIDERS: ADMIT Internal Medicine Hematology & Oncology; ATTEND Internal Medicine Hematology & Oncology
DX: I13.0 Hypertensive heart and chronic kidney disease with heart failure and stage 1 through stage 4 chronic kidney disease, or unspecified chronic kidney disease (principal); E43 Unspecified severe protein-calorie malnutrition; I50.43 Acute on chronic combined systolic (congestive) and diastolic (congestive) heart failure; J96.91 Respiratory failure, unspecified with hypoxia; N17.9 Acute kidney failure, unspecified; C22.8 Malignant neoplasm of liver, primary, unspecified as to type; Z20.822 Contact with and (suspected) exposure to COVID-19; I48.91 Unspecified atrial fibrillation; I25.10 Atherosclerotic heart disease of native coronary artery without angina pectoris; E11.22 Type 2 diabetes mellitus with diabetic chronic kidney disease; F03.90 Unspecified dementia, unspecified severity, without behavioral disturbance, psychotic disturbance, mood disturbance, and anxiety; N18.9 Chronic kidney disease, unspecified; Z68.21 Body mass index [BMI] 21.0-21.9, adult; E78.00 Pure hypercholesterolemia, unspecified; J44.9 Chronic obstructive pulmonary disease, unspecified; E78.5 Hyperlipidemia, unspecified; Z79.4 Long term (current) use of insulin; Z91.19 Patient's noncompliance with other medical treatment and regimen; Z91.14 Patient's other noncompliance with medication regimen; Z99.81 Dependence on supplemental oxygen; E11.65 Type 2 diabetes mellitus with hyperglycemia; D64.9 Anemia, unspecified
CPT/HCPCS: 36415; 71045; 76770; 80048; 80053; 81001; 82948; 83735; 83880; 84100; 84132; 84484; 85025; 85027; 85378; 87635; 87804; 93005; 93306; 93356; 94760; 99291; C9113; G0378; J1650; J1815; J1940; J3490; J7070